=== PATIENT | female | born 1930 | race Caucasian/White ===

== ENCOUNTER 2017-04-07 08:53 | Inpatient (IN) | payer MEDICARE, OTHER ==
[~2017-04-07] VITALS: Ht 170.2 cm; Wt 111.5 kg
[~2017-04-07 08:53] MED LIST: ACET325 PO; BP MED; COUMADIN; CYAN100 PO; Coumadin7.5 MG PO; ENOX100I SC; ERGO400 PO; FISH OIL 1,0001 EACH PO; FISH1000 PO; GABA100 PO; HYDACE5 PO; INSN100I SC; INSULANPEN SC; INSULIN SC; LEVSOD100 PO; LISI20 PO; LOVA40; LOVA40 PO; MECL12.5; MECL12.5 PO; METF500; METF500 PO; METO25 PO; METO25ER; MULVITMINF PO; MYRBETRIQ50 MG PO; Norco 5-325 Ta1 EACH PO; OMEP10ER; OMEP20ER; OMEP20ER PO; OXYACE5T PO; OXYB5; PIOG30 PO; PRAVASTATIN SOD10 MG PO; Pravachol40 MG PO; RISE30; ROSI2; SERT25 PO; SERT50 PO; SPIR25; SPIR25 PO; TRAM50; VITAMIN D2000 UNIT PO; WARF1 PO; WARF4 PO; WARF7.5
[2017-04-07 09:51] LABS: BASOPHILS ABSOLUTE AUTO 0.02 K/mm3 (0.00-0.23); BASOPHILS PERCENT AUTO 0 % (0-2); EOSINOPHILS PERCENT AUTO 0 % (0-6); Hematocrit 33.5 % (33.0-51.0); Hemoglobin 10.8 g/dL (11.5-16.0); IMMATURE GRAN ABSOLUTE AUTO 0.05 K/mm3 (0.00-0.10); IMMATURE GRAN PERCENT AUTO 0 % (0-1); LYMPHOCYTES ABSOLUTE AUTO 1.41 K/mm3 (0.84-5.20); LYMPHOCYTES PERCENT AUTO 9 % (21-46); MONOCYTES ABSOLUTE AUTO 1.31 K/mm3 (0.16-1.47); MONOCYTES PERCENT AUTO 8 % (4-13); Mean Corpuscular HGB 29.8 pg (26.0-34.0); Mean Corpuscular HGB Conc 32.2 g/dL (31.5-36.5); Mean Corpuscular Volume 92 fL (80-100); NEUTROPHILS ABSOLUTE AUTO 13.71 K/mm3 (1.96-9.15); NEUTROPHILS PERCENT AUTO 83 % (41-73); Platelet Count 195 K/mm3 (150-400); RDW Coefficient Variation 14.1 % (11.7-14.2); RDW Standard Deviation 48.3 fL (35.1-46.3); Red Blood Cell Count 3.63 M/mm3 (3.80-5.20)
[2017-04-07 10:10] LABS: International Normalized Ratio 1.43
[2017-04-07 10:12] LABS: Albumin, Blood 2.7 g/dL (3.4-5.0); Albumin/Globulin Ratio 0.9 (0.8-1.8); Bilirubin, Total 0.6 mg/dL (0.1-1.0); Bun/Creatinine Ratio 25.8 (12.0-20.0); Calcium, Blood 7.9 mg/dL (8.5-10.1); Creatinine, Blood 1.2 mg/dL (0.40-1.00); Globulin, Blood 2.9 g/dL (2.2-4.0); Potassium, Blood 5.1 mmol/L (3.5-5.5); Total Protein, Blood 5.6 g/dL (6.4-8.2)
[2017-04-07] MEDS ORDERED: Prinivil10 MG PO (11:33)
[2017-04-07] MEDS ORDERED: INSULANPEN SC (11:37)
[2017-04-07 15:15] LABS: Source, Urine Clean Catch
[2017-04-07 15:23] LABS: Bilirubin, Urine Neg (Neg); Blood, Urine Neg (Neg); Glucose Qualitative, Urine Neg (Neg); Ketones, Urine Neg (Neg); Leukocyte Esterase, Urine 1+ (Neg); Nitrite, Urine Neg (Neg); Protein, Urine 2+ (Neg); Specific Gravity, Urine 1.015 (1.003-1.022); Urobilinogen, Urine NORM (Normal)
[2017-04-07 15:32] LABS: Appearance, Urine Clear (Clear); Color, Urine Yellow (P-Yellow)
[2017-04-07 15:33] LABS: Amorphous Light (0-Heavy); Bacteria Mod /hpf; Red Blood Cells, Urine 0-2 /hpf (0-2); Squamous Epithelial Cells Rare /hpf (Few); White Blood Cells, Urine 0-2 /hpf (0-5)
[2017-04-07 17:11] LABS: Influenza A Negative (NEGATIVE); Influenza B Negative (NEGATIVE)
[2017-04-07] MEDS ORDERED: WARF6 PO (19:48)
[2017-04-07] MEDS ORDERED: LISI20 PO (19:52)
[2017-04-08 05:20] LABS: BASOPHILS ABSOLUTE AUTO 0.01 K/mm3 (0.00-0.23); BASOPHILS PERCENT AUTO 0 % (0-2); EOSINOPHILS ABSOLUTE AUTO 0.01 K/mm3 (0.00-0.68); EOSINOPHILS PERCENT AUTO 0 % (0-6); Hematocrit 29.5 % (33.0-51.0); Hemoglobin 9.6 g/dL (11.5-16.0); IMMATURE GRAN ABSOLUTE AUTO 0.07 K/mm3 (0.00-0.10); IMMATURE GRAN PERCENT AUTO 0 % (0-1); LYMPHOCYTES PERCENT AUTO 8 % (21-46); MONOCYTES ABSOLUTE AUTO 0.91 K/mm3 (0.16-1.47); MONOCYTES PERCENT AUTO 5 % (4-13); Mean Corpuscular HGB 29.2 pg (26.0-34.0); Mean Corpuscular HGB Conc 32.5 g/dL (31.5-36.5); Mean Corpuscular Volume 90 fL (80-100); Mean Platelet Volume 8.9 fL (9.1-12.4); NEUTROPHILS ABSOLUTE AUTO 14.44 K/mm3 (1.96-9.15); NEUTROPHILS PERCENT AUTO 86 % (41-73); Platelet Count 168 K/mm3 (150-400); RDW Coefficient Variation 14.1 % (11.7-14.2); RDW Standard Deviation 46.7 fL (35.1-46.3); Red Blood Cell Count 3.29 M/mm3 (3.80-5.20); White Blood Cell Count 16.84 K/mm3 (4.00-11.30)
[2017-04-08 05:37] LABS: International Normalized Ratio 1.66; Prothrombin Time Results 17.5 Sec (9.7-11.5)
[2017-04-08 05:44] LABS: Bun/Creatinine Ratio 31.5 (12.0-20.0); Calcium, Blood 7.5 mg/dL (8.5-10.1); Creatinine, Blood 1.3 mg/dL (0.40-1.00); Potassium, Blood 4.2 mmol/L (3.5-5.5)
[2017-04-09 05:12] LABS: Hematocrit 27.5 % (33.0-51.0); Hemoglobin 8.8 g/dL (11.5-16.0); Mean Corpuscular HGB 29.3 pg (26.0-34.0); Mean Corpuscular Volume 92 fL (80-100); Mean Platelet Volume 9.2 fL (9.1-12.4); Platelet Count 180 K/mm3 (150-400); RDW Coefficient Variation 14.3 % (11.7-14.2); RDW Standard Deviation 48.1 fL (35.1-46.3); White Blood Cell Count 14.57 K/mm3 (4.00-11.30)
[2017-04-09 05:36] LABS: International Normalized Ratio 2.13; Prothrombin Time Results 22.7 Sec (9.7-11.5)
[2017-04-09 05:42] LABS: Albumin, Blood 2.1 g/dL (3.4-5.0); Anion Gap 8 mmol/L (6-16); Blood Urea Nitrogen 40 mg/dL (8-24); Bun/Creatinine Ratio 37.7 (12.0-20.0); CO2, Blood 20 mmol/L (21-32); Calcium, Blood 7.3 mg/dL (8.5-10.1); Chloride, Blood 105 mmol/L (98-108); Creatinine, Blood 1.06 mg/dL (0.40-1.00); Glomerular Filtration Rate 52 (60-); Glucose, Blood 62 mg/dL (70-99); Phosphorus, Blood 2.5 mg/dL (2.5-4.9); Potassium, Blood 4.1 mmol/L (3.5-5.5); Sodium, Blood 133 mmol/L (136-145)
[2017-04-09 06:48] LABS: Source, Urine Catheter
[2017-04-09 06:51] LABS: Bilirubin, Urine Neg (Neg); Blood, Urine Neg (Neg); Glucose Qualitative, Urine Neg (Neg); Ketones, Urine Neg (Neg); Leukocyte Esterase, Urine Neg (Neg); Nitrite, Urine Neg (Neg); Protein, Urine 1+ (Neg); Urobilinogen, Urine NORM (Normal)
[2017-04-09 06:57] LABS: Appearance, Urine Clear (Clear); Color, Urine Yellow (P-Yellow)
[2017-04-10 05:29] LABS: International Normalized Ratio 2.45; Prothrombin Time Results 26.2 Sec (9.7-11.5)
[2017-04-10 05:37] LABS: Anion Gap 7 mmol/L (6-16); Blood Urea Nitrogen 28 mg/dL (8-24); Bun/Creatinine Ratio 39.4 (12.0-20.0); CO2, Blood 21 mmol/L (21-32); Calcium, Blood 7.7 mg/dL (8.5-10.1); Chloride, Blood 104 mmol/L (98-108); Creatinine, Blood 0.71 mg/dL (0.40-1.00); Glomerular Filtration Rate >60 (60-); Glucose, Blood 84 mg/dL (70-99); Potassium, Blood 4.5 mmol/L (3.5-5.5); Sodium, Blood 132 mmol/L (136-145)
[2017-04-11 05:09] LABS: International Normalized Ratio 2.76; Prothrombin Time Results 29.6 Sec (9.7-11.5)
[2017-04-12 05:51] LABS: BASOPHILS ABSOLUTE AUTO 0.02 K/mm3 (0.00-0.23); BASOPHILS PERCENT AUTO 0 % (0-2); EOSINOPHILS ABSOLUTE AUTO 0.18 K/mm3 (0.00-0.68); EOSINOPHILS PERCENT AUTO 3 % (0-6); Hematocrit 30.3 % (33.0-51.0); Hemoglobin 9.9 g/dL (11.5-16.0); IMMATURE GRAN ABSOLUTE AUTO 0.26 K/mm3 (0.00-0.10); IMMATURE GRAN PERCENT AUTO 4 % (0-1); LYMPHOCYTES ABSOLUTE AUTO 1.33 K/mm3 (0.84-5.20); LYMPHOCYTES PERCENT AUTO 22 % (21-46); MONOCYTES ABSOLUTE AUTO 0.51 K/mm3 (0.16-1.47); MONOCYTES PERCENT AUTO 8 % (4-13); Mean Corpuscular HGB 29.4 pg (26.0-34.0); Mean Corpuscular HGB Conc 32.7 g/dL (31.5-36.5); Mean Corpuscular Volume 90 fL (80-100); NEUTROPHILS PERCENT AUTO 63 % (41-73); Platelet Count 232 K/mm3 (150-400); RDW Coefficient Variation 14.1 % (11.7-14.2); RDW Standard Deviation 46.7 fL (35.1-46.3); Red Blood Cell Count 3.37 M/mm3 (3.80-5.20)
[2017-04-12 06:03] LABS: International Normalized Ratio 2.88
[2017-04-12 06:21] LABS: Alanine Aminotransfer (ALT/SGP 22 U/L (12-78); Albumin, Blood 2.1 g/dL (3.4-5.0); Albumin/Globulin Ratio 0.7 (0.8-1.8); Alk Phos 52 U/L (50-136); Anion Gap 7 mmol/L (6-16); Aspartate Aminotrans (AST/SGOT 27 U/L (12-37); Bilirubin, Total 0.3 mg/dL (0.1-1.0); Blood Urea Nitrogen 14 mg/dL (8-24); Bun/Creatinine Ratio 25.3 (12.0-20.0); CO2, Blood 23 mmol/L (21-32); Calcium, Blood 8.3 mg/dL (8.5-10.1); Chloride, Blood 106 mmol/L (98-108); Creatinine, Blood 0.55 mg/dL (0.40-1.00); Globulin, Blood 3.1 g/dL (2.2-4.0); Glomerular Filtration Rate >60 (60-); Glucose, Blood 102 mg/dL (70-99); Potassium, Blood 4.4 mmol/L (3.5-5.5); Sodium, Blood 136 mmol/L (136-145); Total Protein, Blood 5.2 g/dL (6.4-8.2)
[2017-04-13 06:01] LABS: International Normalized Ratio 2.93; Prothrombin Time Results 31.5 Sec (9.7-11.5)
[2017-04-13] MEDS ORDERED: ACET325 PO (12:02)
[2017-04-13] MEDS ORDERED: INSU100I6 (12:03)
[2017-04-13] MEDS ORDERED: OMEPRAZOLE MAGN20 MG PO (12:09)
== END 2017-04-13 11:45 | disposition home or self-care (01) | DRG 683 ==
LOC: ER 08:53 → MEDS 18:15
PROVIDERS: Internal Medicine; Physician Assistant
DX: N17.9 Acute kidney failure, unspecified (principal); R65.10 Systemic inflammatory response syndrome (SIRS) of non-infectious origin without acute organ dysfunction; I48.0 Paroxysmal atrial fibrillation; D64.9 Anemia, unspecified; E11.9 Type 2 diabetes mellitus without complications; D72.829 Elevated white blood cell count, unspecified; E03.9 Hypothyroidism, unspecified; E78.5 Hyperlipidemia, unspecified; J20.9 Acute bronchitis, unspecified; I12.9 Hypertensive chronic kidney disease with stage 1 through stage 4 chronic kidney disease, or unspecified chronic kidney disease; N18.9 Chronic kidney disease, unspecified; R32 Unspecified urinary incontinence; R62.7 Adult failure to thrive; Z79.4 Long term (current) use of insulin; Z95.2 Presence of prosthetic heart valve; Z96.641 Presence of right artificial hip joint; Z79.01 Long term (current) use of anticoagulants
CPT/HCPCS: 36415; 51702; 71046; 74176; 80048; 80053; 80069; 81001; 82947; 85025; 85027; 85610; 87086; 87804; 93005; 93010; 94760; 97110; 97162; 97166; 97530; 97535; 99285; G8978; G8979; G8987; G8988; J0456; J1650; J1815; J2405; J3480; J7050

== ENCOUNTER → 2017-05-15 | Outpatient (CLI) | payer MEDICARE, OTHER ==
[~2017-05-15] MED LIST changes: +ELIQUIS5 MG PO; +Ferrous Sulfat325 MG; +INSU100I6; +LOSA50 PO; +OMEPRAZOLE MAGN20 MG PO; +Prinivil10 MG PO; +Tessalon Perle100 MG; +WARF6 PO
[2017-05-15 17:13] LABS: Appearance, Urine Clear (Clear); Bilirubin, Urine Neg (Neg); Blood, Urine Neg (Neg); Color, Urine Yellow (P-Yellow); Glucose Qualitative, Urine Neg (Neg); Ketones, Urine Neg (Neg); Leukocyte Esterase, Urine Neg (Neg); Nitrite, Urine Neg (Neg); Protein, Urine 2+ (Neg); Urobilinogen, Urine NORM (Normal)
[2017-05-15 17:29] LABS: Specific Gravity, Urine 1.015 (1.003-1.022)
[2017-05-15 17:32] LABS: Bacteria Mod /hpf; Squamous Epithelial Cells Mod /hpf (Few)
== END | disposition home or self-care (01) ==
LOC: LAB RH 16:40
PROVIDERS: Nurse Practitioner Family
DX: N39.0 Urinary tract infection, site not specified (principal)
CPT/HCPCS: 81001; 87086

== ENCOUNTER → 2017-06-18 | Outpatient (CLI) | payer MEDICARE, OTHER ==
[2017-06-18 14:25] LABS: Appearance, Urine Clear (Clear); Bilirubin, Urine Neg (Neg); Blood, Urine 1+ (Neg); Color, Urine Yellow (P-Yellow); Glucose Qualitative, Urine Neg (Neg); Ketones, Urine Neg (Neg); Leukocyte Esterase, Urine 2+ (Neg); Nitrite, Urine Neg (Neg); Protein, Urine 3+ (Neg); Urobilinogen, Urine NORM (Normal)
[2017-06-18 14:38] LABS: Squamous Epithelial Cells Few /hpf (Few); White Blood Cells, Urine 25-50 /hpf (0-5)
[2017-06-18 14:39] LABS: Bacteria Few /hpf
== END ==
LOC: EDSTATUS 13:04 → LAB RH 14:01
PROVIDERS: Nurse Practitioner Family
DX: N39.0 Urinary tract infection, site not specified (principal)
CPT/HCPCS: 81001; 87086

== ENCOUNTER → 2017-07-05 | Outpatient (CLI) | payer MEDICARE, OTHER ==
[2017-07-05 16:35] LABS: Source, Urine Catheter
[2017-07-05 16:49] LABS: Appearance, Urine Clear (Clear); Bilirubin, Urine Neg (Neg); Blood, Urine 1+ (Neg); Color, Urine Yellow (P-Yellow); Glucose Qualitative, Urine Neg (Neg); Ketones, Urine Neg (Neg); Leukocyte Esterase, Urine Neg (Neg); Nitrite, Urine Neg (Neg); Protein, Urine 3+ (Neg); Urobilinogen, Urine 1+ (Normal)
[2017-07-05 17:04] LABS: Amorphous Not Seen (0-Heavy)
[2017-07-05 17:05] LABS: Bacteria Few /hpf; Squamous Epithelial Cells Few /hpf (Few)
== END | disposition home or self-care (01) ==
LOC: LAB RH 13:30 → EDSTATUS 14:17
PROVIDERS: Nurse Practitioner Family
DX: N39.0 Urinary tract infection, site not specified (principal)
CPT/HCPCS: 81001

== ENCOUNTER 2017-07-06 17:33 | Emergency (ER) | payer MEDICARE, OTHER ==
[~2017-07-06] VITALS: Ht 170.2 cm; Wt 101.6 kg
[~2017-07-06 17:33] MED LIST changes: -ELIQUIS5 MG PO; -Ferrous Sulfat325 MG; -LOSA50 PO; -Tessalon Perle100 MG
[2017-07-06] MEDS ORDERED: ELIQUIS5 MG PO (17:45)
[2017-07-06] MEDS ORDERED: LOSA50 PO (17:45)
[2017-07-06] MEDS ORDERED: Ferrous Sulfat325 MG (17:46)
[2017-07-06] MEDS ORDERED: Tessalon Perle100 MG (17:47)
[2017-07-06 18:10] LABS: BASOPHILS ABSOLUTE AUTO 0.03 K/mm3 (0.00-0.23); BASOPHILS PERCENT AUTO 0 % (0-2); EOSINOPHILS ABSOLUTE AUTO 0.15 K/mm3 (0.00-0.68); EOSINOPHILS PERCENT AUTO 2 % (0-6); Hematocrit 33.8 % (33.0-51.0); IMMATURE GRAN ABSOLUTE AUTO 0.09 K/mm3 (0.00-0.10); IMMATURE GRAN PERCENT AUTO 1 % (0-1); LYMPHOCYTES ABSOLUTE AUTO 2.06 K/mm3 (0.84-5.20); LYMPHOCYTES PERCENT AUTO 25 % (21-46); MONOCYTES ABSOLUTE AUTO 0.66 K/mm3 (0.16-1.47); MONOCYTES PERCENT AUTO 8 % (4-13); Mean Corpuscular HGB 28.5 pg (26.0-34.0); Mean Corpuscular HGB Conc 32.5 g/dL (31.5-36.5); Mean Corpuscular Volume 88 fL (80-100); Mean Platelet Volume 9.1 fL (9.1-12.4); NEUTROPHILS ABSOLUTE AUTO 5.42 K/mm3 (1.96-9.15); NEUTROPHILS PERCENT AUTO 64 % (41-73); Platelet Count 208 K/mm3 (150-400); RDW Coefficient Variation 14.5 % (11.7-14.2); RDW Standard Deviation 46.5 fL (35.1-46.3); Red Blood Cell Count 3.86 M/mm3 (3.80-5.20); White Blood Cell Count 8.41 K/mm3 (4.00-11.30)
[2017-07-06 18:20] LABS: Alanine Aminotransfer (ALT/SGP 17 U/L (12-78); Albumin, Blood 2.7 g/dL (3.4-5.0); Albumin/Globulin Ratio 0.8 (0.8-1.8); Alk Phos 84 U/L (50-136); Anion Gap 6 mmol/L (6-16); Aspartate Aminotrans (AST/SGOT 23 U/L (12-37); Bilirubin, Total 0.6 mg/dL (0.1-1.0); Blood Urea Nitrogen 12 mg/dL (8-24); Bun/Creatinine Ratio 21.8 (12.0-20.0); CO2, Blood 26 mmol/L (21-32); Calcium, Blood 8.5 mg/dL (8.5-10.1); Chloride, Blood 97 mmol/L (98-108); Creatinine, Blood 0.55 mg/dL (0.40-1.00); Globulin, Blood 3.2 g/dL (2.2-4.0); Glomerular Filtration Rate >60 (60-); Glucose, Blood 110 mg/dL (70-99); Sodium, Blood 129 mmol/L (136-145); Total Protein, Blood 5.9 g/dL (6.4-8.2)
[2017-07-06 19:09] LABS: Troponin I <0.015 ng/mL (0.000-0.040)
== END 2017-07-06 21:54 | disposition home or self-care (01) ==
LOC: ER 17:33
PROVIDERS: Physician Assistant
DX: I11.0 Hypertensive heart disease with heart failure (principal); I50.9 Heart failure, unspecified; E11.9 Type 2 diabetes mellitus without complications; Z88.0 Allergy status to penicillin; Z88.5 Allergy status to narcotic agent; Z88.8 Allergy status to other drugs, medicaments and biological substances; Z79.4 Long term (current) use of insulin; Z79.899 Other long term (current) drug therapy
CPT/HCPCS: 71046; 80053; 83880; 84484; 85025; 93005; 93010; 96374; 96375; 99284; J0360; J1940

== ENCOUNTER → 2017-07-31 | Outpatient (CLI) | payer MEDICARE, OTHER ==
[~2017-07-31] MED LIST changes: +ELIQUIS5 MG PO; +Ferrous Sulfat325 MG; +LOSA50 PO; +Tessalon Perle100 MG
[2017-07-31 14:09] LABS: Hemoglobin 12.7 g/dL (11.5-16.0); Mean Corpuscular HGB 28.7 pg (26.0-34.0); Mean Corpuscular HGB Conc 31.8 g/dL (31.5-36.5); Mean Corpuscular Volume 91 fL (80-100); Mean Platelet Volume 9.4 fL (9.1-12.4); Platelet Count 184 K/mm3 (150-400); RDW Coefficient Variation 14.7 % (11.7-14.2); RDW Standard Deviation 49.1 fL (35.1-46.3); Red Blood Cell Count 4.42 M/mm3 (3.80-5.20); White Blood Cell Count 4.36 K/mm3 (4.00-11.30)
[2017-07-31 14:56] LABS: Alanine Aminotransfer (ALT/SGP 14 U/L (12-78); Albumin/Globulin Ratio 0.9 (0.8-1.8); Alk Phos 94 U/L (50-136); Anion Gap 5 mmol/L (6-16); Aspartate Aminotrans (AST/SGOT 22 U/L (12-37); Bilirubin, Total 0.6 mg/dL (0.1-1.0); Blood Urea Nitrogen 11 mg/dL (8-24); Bun/Creatinine Ratio 17.3 (12.0-20.0); CO2, Blood 30 mmol/L (21-32); Calcium, Blood 8.5 mg/dL (8.5-10.1); Chloride, Blood 101 mmol/L (98-108); Creatinine, Blood 0.64 mg/dL (0.40-1.00); Globulin, Blood 3.3 g/dL (2.2-4.0); Glomerular Filtration Rate >60 (60-); Glucose, Blood 123 mg/dL (70-99); Potassium, Blood 4.1 mmol/L (3.5-5.5); Sodium, Blood 136 mmol/L (136-145); Total Protein, Blood 6.3 g/dL (6.4-8.2)
== END | disposition home or self-care (01) ==
LOC: LAB RH 13:05 → EDSTATUS 13:54
PROVIDERS: Nurse Practitioner Family
DX: N17.9 Acute kidney failure, unspecified (principal); J40 Bronchitis, not specified as acute or chronic
CPT/HCPCS: 80053; 85027

== ENCOUNTER → 2017-12-10 | Outpatient (CLI) | payer MEDICARE, OTHER ==
[2017-12-10 23:27] LABS: Bilirubin, Urine Neg (Neg); Blood, Urine 2+ (Neg); Glucose Qualitative, Urine Neg (Neg); Ketones, Urine Neg (Neg); Leukocyte Esterase, Urine 3+ (Neg); Nitrite, Urine Neg (Neg); Protein, Urine 3+ (Neg); Specific Gravity, Urine 1.015 (1.003-1.022); Urobilinogen, Urine NORM (Normal)
[2017-12-10 23:32] LABS: Appearance, Urine Cloudy (Clear); Color, Urine Yellow (P-Yellow)
[2017-12-10 23:33] LABS: Bacteria Many /hpf; Red Blood Cells, Urine 0-2 /hpf (0-2); Squamous Epithelial Cells Few /hpf (Few); White Blood Cells, Urine TNTC /hpf (0-5)
== END | disposition home or self-care (01) ==
LOC: EDSTATUS 11:27 → LAB RH 14:50
PROVIDERS: Nurse Practitioner Family
DX: N39.0 Urinary tract infection, site not specified (principal)
CPT/HCPCS: 81001; 87086

== ENCOUNTER → 2017-12-14 | Outpatient (CLI) | payer MEDICARE, OTHER ==
[2017-12-14 14:21] LABS: Adenovirus F 40/41 Not Detected (NOT DETECT); Astrovirus Not Detected (NOT DETECT); Campylobacter Sp Not Detected (NOT DETECT); Cryptosporidium Not Detected (NOT DETECT); Cyclospora Cayetanensis Not Detected (NOT DETECT); E. Coli O157 Not Detected (NOT DETECT); Entamoeba Histolytica Not Detected (NOT DETECT); Enteroaggregative E. coli-EAEC Not Detected (NOT DETECT); Enteropathogenic E. coli-EPEC Not Detected (NOT DETECT); Enterotoxigenic E. coli-ETEC Not Detected (NOT DETECT); Giardia Lamblia Not Detected (NOT DETECT); Norovirus GI/GII Not Detected (NOT DETECT); Plesiomonas Shigelloides Not Detected (NOT DETECT); Rotavirus A Not Detected (NOT DETECT); Salmonella Sp Not Detected (NOT DETECT); Sapovirus Not Detected (NOT DETECT); Shiga Toxin-prod E. coli-STEC Not Detected (NOT DETECT); Shigella/Enteroin E. coli-EIEC Not Detected (NOT DETECT); Vibrio Cholerae Not Detected (NOT DETECT); Vibrio Sp Not Detected (NOT DETECT); Yersinia Enterocolitica Not Detected (NOT DETECT)
== END | disposition home or self-care (01) ==
LOC: LAB 13:30 → LAB SHORT 13:30
PROVIDERS: Nurse Practitioner Family
DX: R19.7 Diarrhea, unspecified (principal)
CPT/HCPCS: 87507

== ENCOUNTER → 2018-11-07 | Outpatient (CLI) | payer MEDICARE, OTHER ==
[~2018-11-07] MED LIST changes: +AMLO10 PO; +ASCO500 PO; +Aspir 8181 MG PO; +CARV6.25 PO; +CEPH500 PO; +EUTHYROX150 MCG PO; +FURO20 PO; -Ferrous Sulfat325 MG; +Ferrous Sulfat325 MG PO; +Fiber Therapy0.52 GM PO; +Fleet Enema132 ML PR; +Florastor250 MG PO; +GLYCERIN1 EACH PR; +Hair, Skin & N1 EACH PO; +Humulin R500 UNIT/1 SC; +MOTION RELIEF25 MG PO; +ONDA4ODT SL; +POTA10T PO; +Pedi-Dri 100,0060 GM TOP; +TROSPIUM CHLORI20 MG PO; -Tessalon Perle100 MG; +Tessalon200 MG PO; +[UNRECOGNIZED DRUG - OTHER] PO
[2018-11-07 16:41] LABS: Percent Saturation 25.7 % (15.0-50.0)
== END | disposition home or self-care (01) ==
LOC: LAB SHORT 12:30 → LAB 12:30
PROVIDERS: Internal Medicine Hematology & Oncology
DX: D51.8 Other vitamin B12 deficiency anemias (principal)
CPT/HCPCS: 82607; 82746; 83540; 83550

== ENCOUNTER 2018-12-04 15:42 | Emergency (ER) | payer MEDICARE, OTHER ==
[~2018-12-04] VITALS: Ht 167.6 cm; Wt 104.3 kg
[~2018-12-04 15:42] MED LIST changes: -AMLO10 PO; -ASCO500 PO; -Aspir 8181 MG PO; -CARV6.25 PO; -CEPH500 PO; -EUTHYROX150 MCG PO; -FURO20 PO; -Ferrous Sulfat325 MG PO; -Fiber Therapy0.52 GM PO; -Fleet Enema132 ML PR; -Florastor250 MG PO; -GLYCERIN1 EACH PR; -Hair, Skin & N1 EACH PO; -Humulin R500 UNIT/1 SC; -LOSA50 PO; -MOTION RELIEF25 MG PO; -OMEPRAZOLE MAGN20 MG PO; -ONDA4ODT SL; -POTA10T PO; -Pedi-Dri 100,0060 GM TOP; -Pravachol40 MG PO; -TROSPIUM CHLORI20 MG PO; -Tessalon200 MG PO; -[UNRECOGNIZED DRUG - OTHER] PO
[2018-12-04] MEDS ORDERED: METO25 PO (15:52)
[2018-12-04] MEDS ORDERED: CEPH500 PO (16:46)
== END 2018-12-04 18:02 | disposition home or self-care (01) ==
LOC: ER 15:42
DX: S51.802A Unspecified open wound of left forearm, initial encounter (principal); L03.114 Cellulitis of left upper limb; I10 Essential (primary) hypertension; X58.XXXA Exposure to other specified factors, initial encounter; Z88.0 Allergy status to penicillin; Z88.5 Allergy status to narcotic agent; Z88.8 Allergy status to other drugs, medicaments and biological substances; Z88.1 Allergy status to other antibiotic agents; Z79.899 Other long term (current) drug therapy; Z79.82 Long term (current) use of aspirin; Z79.4 Long term (current) use of insulin; E11.9 Type 2 diabetes mellitus without complications
CPT/HCPCS: 99283

== ENCOUNTER 2018-12-30 11:06 | Inpatient (IN) | payer MEDICARE, OTHER ==
[~2018-12-30] VITALS: Ht 170.2 cm; Wt 112.4 kg
[~2018-12-30 11:06] MED LIST changes: +CEPH500 PO
[2018-12-30 11:35] LABS: Calcium, Ionized (POC) 1.02 mmol/L (1.10-1.46); Chloride (POC) 95 mmol/L (98-108); Creatinine (POC) 1.8 mg/dL (0.6-1.0); Glucose (ISTAT POC) 145 mg/dL (70-99); Hemoglobin (POC) 13.6 g/dL (12.0-16.0); Potassium (POC) 4.4 mmol/L (3.5-5.5); Sodium (POC) 126 mmol/L (135-148); Total CO2 (POC) 22 mmol/L (21-32)
[2018-12-30 11:40] LABS: BASOPHILS ABSOLUTE AUTO 0.02 K/mm3 (0.00-0.23); BASOPHILS PERCENT AUTO 0 % (0-2); EOSINOPHILS ABSOLUTE AUTO 0.02 K/mm3 (0.00-0.68); EOSINOPHILS PERCENT AUTO 0 % (0-6); Hematocrit 40.3 % (33.0-51.0); Hemoglobin 12.8 g/dL (11.5-16.0); IMMATURE GRAN ABSOLUTE AUTO 0.09 K/mm3 (0.00-0.10); IMMATURE GRAN PERCENT AUTO 1 % (0-1); LYMPHOCYTES ABSOLUTE AUTO 1.61 K/mm3 (0.84-5.20); LYMPHOCYTES PERCENT AUTO 11 % (21-46); MONOCYTES ABSOLUTE AUTO 1.31 K/mm3 (0.16-1.47); MONOCYTES PERCENT AUTO 9 % (4-13); Mean Corpuscular HGB 29.1 pg (26.0-34.0); Mean Corpuscular HGB Conc 31.8 g/dL (31.5-36.5); Mean Corpuscular Volume 92 fL (80-100); Mean Platelet Volume 9.7 fL (9.1-12.4); NEUTROPHILS ABSOLUTE AUTO 12.12 K/mm3 (1.96-9.15); NEUTROPHILS PERCENT AUTO 80 % (41-73); Platelet Count 203 K/mm3 (150-400); RDW Coefficient Variation 14.8 % (11.7-14.2); RDW Standard Deviation 50.4 fL (35.1-46.3); White Blood Cell Count 15.17 K/mm3 (4.00-11.30)
[2018-12-30 12:02] LABS: Albumin, Blood 2.4 g/dL (3.4-5.0); Albumin/Globulin Ratio 0.8 (0.8-1.8); Bilirubin, Total 0.7 mg/dL (0.1-1.0); Bun/Creatinine Ratio 21.3 (12.0-20.0); Calcium, Blood 7.8 mg/dL (8.5-10.1); Creatinine, Blood 1.5 mg/dL (0.40-1.00); Globulin, Blood 2.9 g/dL (2.2-4.0); Potassium, Blood 4.4 mmol/L (3.5-5.5); Prothrombin Time Results 39.7 Sec (9.7-11.5); Total Protein, Blood 5.3 g/dL (6.4-8.2)
[2018-12-30 12:08] LABS: International Normalized Ratio 4.27
[2018-12-30] MEDS ORDERED: GABA100 PO (12:58)
[2018-12-30] MEDS ORDERED: Pravachol40 MG PO (12:59)
[2018-12-30] MEDS ORDERED: SERT50 PO (12:59)
[2018-12-30] MEDS ORDERED: Tessalon200 MG PO (13:00)
[2018-12-30] MEDS ORDERED: EUTHYROX150 MCG PO (13:00)
[2018-12-30] MEDS ORDERED: AMLO10 PO (13:01)
[2018-12-30] MEDS ORDERED: Aspir 8181 MG PO (13:01)
[2018-12-30] MEDS ORDERED: FURO20 PO (13:02)
[2018-12-30] MEDS ORDERED: POTA10T PO (13:02)
[2018-12-30] MEDS ORDERED: Hair, Skin & N1 EACH PO (13:04)
[2018-12-30] MEDS ORDERED: ASCO500 PO (13:04)
[2018-12-30] MEDS ORDERED: LOSA50 PO (13:05)
[2018-12-30] MEDS ORDERED: CARV6.25 PO (13:05)
[2018-12-30] MEDS ORDERED: Ferrous Sulfat325 MG PO (13:06)
[2018-12-30] MEDS ORDERED: TROSPIUM CHLORI20 MG PO (13:06)
[2018-12-30] MEDS ORDERED: ACET325 PO (13:07)
[2018-12-30] MEDS ORDERED: Pedi-Dri 100,0060 GM TOP (13:10)
[2018-12-30] MEDS ORDERED: MOTION RELIEF25 MG PO (13:11)
[2018-12-30] MEDS ORDERED: INSULANPEN SC (13:12)
[2018-12-30] MEDS ORDERED: OMEPRAZOLE MAGN20 MG PO (13:12)
[2018-12-30] MEDS ORDERED: [UNRECOGNIZED DRUG - OTHER] PO (13:14)
[2018-12-30] MEDS ORDERED: ONDA4ODT SL (13:14)
[2018-12-30] MEDS ORDERED: WARF6 PO (13:15)
[2018-12-30] MEDS ORDERED: WARF1 PO (13:16)
[2018-12-30] MEDS ORDERED: Fleet Enema132 ML PR (13:17)
[2018-12-30] MEDS ORDERED: GLYCERIN1 EACH PR (13:19)
[2018-12-30 17:18] LABS: Prothrombin Time Results 48.5 Sec (9.7-11.5)
[2018-12-30 17:19] LABS: International Normalized Ratio 5.33
--- NOTE | 2018-12-30 19:23 | NUR ---
SHIFT SUMMARY: PATIENT ADMIT FROM ED THIS SHIFT. PATIENT A&O; OCC CONFUSION; CALM AND COOPERATIVE WITH CARE. ELEVATED WBC COUNT; IV ABX. AWAITING TELE; PT HX A-FIB, CHF, HTN; EKG IN ER @ 1114 - SR@80 c 1 DEG BLOCK.NO C/O PAIN/NAUSEA. PT ON BEDREST c BSC; PT WHEELCHAIR BOUND @ BASELINE. REPORT GIVEN TO ONCOMING RN.
[2018-12-30 21:56] LABS: Adenovirus F 40/41 Not Detected (NOT DETECT); Astrovirus Not Detected (NOT DETECT); Campylobacter Sp Not Detected (NOT DETECT); Cryptosporidium Not Detected (NOT DETECT); Cyclospora Cayetanensis Not Detected (NOT DETECT); E. Coli O157 Not Detected (NOT DETECT); Entamoeba Histolytica Not Detected (NOT DETECT); Enteroaggregative E. coli-EAEC Not Detected (NOT DETECT); Enteropathogenic E. coli-EPEC Detected (NOT DETECT); Enterotoxigenic E. coli-ETEC Not Detected (NOT DETECT); Giardia Lamblia Not Detected (NOT DETECT); Norovirus GI/GII Not Detected (NOT DETECT); Plesiomonas Shigelloides Not Detected (NOT DETECT); Rotavirus A Not Detected (NOT DETECT); Salmonella Sp Not Detected (NOT DETECT); Sapovirus Not Detected (NOT DETECT); Shiga Toxin-prod E. coli-STEC Not Detected (NOT DETECT); Shigella/Enteroin E. coli-EIEC Not Detected (NOT DETECT); Vibrio Cholerae Not Detected (NOT DETECT); Vibrio Sp Not Detected (NOT DETECT); Yersinia Enterocolitica Not Detected (NOT DETECT)
[2018-12-31 05:06] LABS: BASOPHILS ABSOLUTE AUTO 0.03 K/mm3 (0.00-0.23); BASOPHILS PERCENT AUTO 0 % (0-2); EOSINOPHILS ABSOLUTE AUTO 0.01 K/mm3 (0.00-0.68); EOSINOPHILS PERCENT AUTO 0 % (0-6); Hematocrit 34.5 % (33.0-51.0); Hemoglobin 11.2 g/dL (11.5-16.0); IMMATURE GRAN ABSOLUTE AUTO 0.16 K/mm3 (0.00-0.10); IMMATURE GRAN PERCENT AUTO 1 % (0-1); LYMPHOCYTES ABSOLUTE AUTO 1.58 K/mm3 (0.84-5.20); LYMPHOCYTES PERCENT AUTO 10 % (21-46); MONOCYTES ABSOLUTE AUTO 1.31 K/mm3 (0.16-1.47); MONOCYTES PERCENT AUTO 9 % (4-13); Mean Corpuscular HGB 29.2 pg (26.0-34.0); Mean Corpuscular HGB Conc 32.5 g/dL (31.5-36.5); Mean Corpuscular Volume 90 fL (80-100); Mean Platelet Volume 9.2 fL (9.1-12.4); NEUTROPHILS ABSOLUTE AUTO 12.28 K/mm3 (1.96-9.15); NEUTROPHILS PERCENT AUTO 80 % (41-73); Platelet Count 176 K/mm3 (150-400); RDW Coefficient Variation 14.8 % (11.7-14.2); Red Blood Cell Count 3.84 M/mm3 (3.80-5.20); White Blood Cell Count 15.37 K/mm3 (4.00-11.30)
--- NOTE | 2018-12-31 05:22 | NUR ---
SHIFT SUMMARY PT ADMITTED FOR COLITIES. DNR. ADA-2 GRAM LOW SODIUM, CARDIAC, FULL LIQUID DIET. CBG AT AC AND HS. TELE-NSR WITH A FIRST DEGREE BLOCK AT A RATE OF 80. THIGH HIGH ANTI-EMBOLIC STOCKSINGS. NS, KCL 20 MEQ AT 100 MLS/HR X 2 BAGS, SECOND BAG CURRENTLY INFUSING. PROTONIX AT 10 MLS/HR. PT IS A LONG-TERM RESIDENT OF [facility] AND PLAN IS TO RETURN WHEN ACUTE MEDICAL NEEDS ARE MET. [facility] PT. W/C BOUND AT BASELINE PER REPORT. TAKES MEDICATIONS WHOLE. 20G IV TO L AC, 20 GI IV TO R WRIST. PT ADMITTED FOR A SYNCOPAL EPISODE. THE PT WAS ON THE COMMODE TO HAVE A BM AND WHEN STANDING THE PT LOST CONSCIOUSNESS PER REPORT. PT REPORTS 304 EPISODES OF DARK, LOOSE STOOL DAILY FOR SEVERAL WEEKS. A CT OF THE ABDOMENT SHOWED EVIDENCE OF MODERATE TO SEVERE DISTAL PROCTOCOLITIS. THE PT WAS PLEASENT AND COOPERATIVE WITH CARE. WHEN ATTEMPTING TO GET THE PT OUT OF BED TO PLACE ON THE BSC THE PT STATED SHE BECAME DIZZY, AND THE PT WAS TOO WEAK TO EVEN HOLD SELF UP IN SITTING POSITION IN BED. IT DID NOT APPEAR TO BE SAFE TO GET THE PT UP. PT PLACED ON A BEDPAN AND HAD BM, STOOL SAMPLE SENT TO LAB. THE PT DID APPEAR TO GET CONFUSED THIS NIGHT, WAS NOT ABLE TO REDIRECT IMMEDIATELY. PT DID APPEAR TO RETURN TO BASELINE AFTER SEVERAL MINUTES. THE PT APPEARS TO BE SLEEPING COMFORTABLY AT THIS TIME WITH NO APPARENT SIGNS OF ACUTE DISTRESS. FREQUENT VISUAL CHECKS IT IS UNCLEAR IF PT ALWARYS USES CALL LIGHT APPROPRIATELY. WILL CONTINUE TO MONITOR.
[2018-12-31 05:25] LABS: Prothrombin Time Results 50.7 Sec (9.7-11.5)
[2018-12-31 05:30] LABS: International Normalized Ratio 5.59
[2018-12-31 05:36] LABS: Albumin, Blood 2.2 g/dL (3.4-5.0); Albumin/Globulin Ratio 0.8 (0.8-1.8); Bilirubin, Total 0.9 mg/dL (0.1-1.0); Bun/Creatinine Ratio 25.5 (12.0-20.0); Calcium, Blood 7.3 mg/dL (8.5-10.1); Creatinine, Blood 1.49 mg/dL (0.40-1.00); Globulin, Blood 2.6 g/dL (2.2-4.0); Potassium, Blood 4.3 mmol/L (3.5-5.5); Total Protein, Blood 4.8 g/dL (6.4-8.2)
--- NOTE | 2018-12-31 06:06 | NUR ---
ISOLATION REMOVAL STOOL SAMPLE COLLECTED AND SENT TO LAB. WAS POSITIVE FOR STOOL EPEC (PCR), IT WAS UNCLEAR IF THIS REQUIRED CONTACT ISOLATION SO PT KEPT IN ISOLATION UNTIL COULD CONFIRM WITH INFECTION CONTROL THIS AM. AT 0602 INFECTION CONTROL CALLED THIS NURSE AND STATED THAT THIS IS STANDARD PRECAUTIONS ONLY. NOTIFIED TERMITE EXTERMINATOR HELPER AND GAS AND OIL SERVICER.
--- NOTE | 2018-12-31 12:26 | NUR ---
Patient is lying in bed and alert. Patient is tearful about the loss of her on 11/03/2018 And at other times recently her son and her niece) and about her current medical conditions that have led to her being a fall risk at home. Patient realizes that alternate living arrangements are needed but is saddened with the idea of not returning to her independent living. I listen empathically, reinforce helpful attitudes and practices, explore church beliefs, provide grief support, quatation of inspirational scriptures and prayer. Patient responds well and displays evidence of renewed hope. I will continue to remain available to patient and family.
--- NOTE | 2018-12-31 19:29 | NUR ---
SUMMARY- PT ALERT AND ORIENTED. DEPENDANT IN CARE, FEEDS SELF WITH SET UP. HAD DIARRHEA ALL DAY, NON STOP CONT TO GO DURING CHANGES. GLUT RED, NO OPEN AREAS, APPLIED SKIN BARRIER WITH CHANGES. INCONT WITH ATTENDS. PT DENEID NAUSEA BUT STATES DECREASED APPETITE, TOLERATES SMALL AMOUNTS PUREED FOOD (HAS NO TEETH) AND TAKING IN FLUIDS WITHOUT TROUBLE. IV NOW SL COMPLETED 2ND LITER. CONT ORAL VANCO. FAMILY AT BEDSIDE TO VISIT ALL DAY ON/OFF. VSS, AFIBRILE. PT HAD ONE EPISODE OF EMESIS AFTER ATTENDS CHANGE DIRECTLY AFTER DINNER, LIKELY DUE TO PROXOMITY TO DINNER. DENIED NAUSEA AFTER EMESIS AND BED CHANGE. WILL REPORT TO NOC.
--- NOTE | 2019-01-01 03:48 | NUR ---
SHIFT SUMMARY NO APPARENT ACUTE CHANGES SO FAR THIS SHIFT. PT WITH C/O NAUSEA AT BEGINNING OF SHIFT AND REPORTS OF EMESIS FROM PREVIOUS NURSE. MEDICATED PER EMAR WITH NO ADDITIONAL C/O OF NAUSEA SO FAR THIS SHIFT. BUFFING MACHINE OPERATOR SEMIAUTOMATIC REPORTED ELEVATED TEMP DURING INITIAL VITALS, PT WITH MULTIPLE BLANKETS ON, REMOVED BLANKETS AND TEMP REDUCED TO WNL. PT HAS APPEARED TO BE SLEEPING COMFORTABLY SO FAR THIS SHIFT WITH NO APPARENT SIGNS OF ACUTE DISTRESS. ABLE TO MAKE NEEDS KNOWN AND CALL LIGHT IN REACH. PT APPEARS TO BE USING CALL LIGHT APPROPRIATELY SO FAR THIS SHIFT.
[2019-01-01 05:16] LABS: International Normalized Ratio 3.67; Prothrombin Time Results 34.6 Sec (9.7-11.5)
[2019-01-01 08:53] LABS: BASOPHILS ABSOLUTE AUTO 0.04 K/mm3 (0.00-0.23); BASOPHILS PERCENT AUTO 0 % (0-2); EOSINOPHILS ABSOLUTE AUTO 0.07 K/mm3 (0.00-0.68); EOSINOPHILS PERCENT AUTO 0 % (0-6); Hematocrit 34.3 % (33.0-51.0); Hemoglobin 10.8 g/dL (11.5-16.0); IMMATURE GRAN ABSOLUTE AUTO 0.23 K/mm3 (0.00-0.10); IMMATURE GRAN PERCENT AUTO 1 % (0-1); LYMPHOCYTES ABSOLUTE AUTO 1.86 K/mm3 (0.84-5.20); LYMPHOCYTES PERCENT AUTO 11 % (21-46); MONOCYTES ABSOLUTE AUTO 1.19 K/mm3 (0.16-1.47); MONOCYTES PERCENT AUTO 7 % (4-13); Mean Corpuscular HGB 29.3 pg (26.0-34.0); Mean Corpuscular HGB Conc 31.5 g/dL (31.5-36.5); Mean Corpuscular Volume 93 fL (80-100); Mean Platelet Volume 9.8 fL (9.1-12.4); NEUTROPHILS ABSOLUTE AUTO 12.87 K/mm3 (1.96-9.15); NEUTROPHILS PERCENT AUTO 79 % (41-73); Platelet Count 183 K/mm3 (150-400); RDW Coefficient Variation 14.7 % (11.7-14.2); RDW Standard Deviation 51.1 fL (35.1-46.3); Red Blood Cell Count 3.68 M/mm3 (3.80-5.20); White Blood Cell Count 16.26 K/mm3 (4.00-11.30)
[2019-01-01 09:19] LABS: Bun/Creatinine Ratio 34.1 (12.0-20.0); Calcium, Blood 7.5 mg/dL (8.5-10.1); Creatinine, Blood 1.32 mg/dL (0.40-1.00); Potassium, Blood 3.9 mmol/L (3.5-5.5)
--- NOTE | 2019-01-01 18:19 | NUR ---
END OF SHIFT SUMMARY: THIS MORNING, PATIENT REPORTED THAT SHE IS FEELING BETTER. HOWEVER, THROUGHOUT THE DAY, THAT PATIENT CONTINUED TO REPORT FEELING UNWELL. MEDICATED ONCE FOR BACK/HIP PAIN AND ONCE FOR NAUSEA (SEE EMAR). PATIENT TOLERATED ENSURE WITHOUT NAUSEA. PATIENT ATTEMPTING TO EAT AND REPORTS THAT SHE HAS NO TASTE FOR FOOD. ABDOMEN CONTINUES TO BE DISTENDED. PATIENT REPORTS THAT THIS IS NORMAL. CONTINUES TO HAVE LIQUID STOOL. EVERY TIME THE PATIENT IS REPOSITIONED, MORE STOOL AND GAS IS PASSED. PATIENT CONTINUES TO BE INCONTINENT OF BOTH. PATIENT WILL BE POTENTIALLY ABLE TO DISCHARGE TOMORROW BACK TO [facility].
[2019-01-02 05:30] LABS: BASOPHILS ABSOLUTE AUTO 0.03 K/mm3 (0.00-0.23); BASOPHILS PERCENT AUTO 0 % (0-2); EOSINOPHILS ABSOLUTE AUTO 0.13 K/mm3 (0.00-0.68); EOSINOPHILS PERCENT AUTO 1 % (0-6); Hematocrit 35.1 % (33.0-51.0); Hemoglobin 11.3 g/dL (11.5-16.0); IMMATURE GRAN ABSOLUTE AUTO 0.19 K/mm3 (0.00-0.10); IMMATURE GRAN PERCENT AUTO 2 % (0-1); LYMPHOCYTES ABSOLUTE AUTO 1.23 K/mm3 (0.84-5.20); LYMPHOCYTES PERCENT AUTO 11 % (21-46); MONOCYTES ABSOLUTE AUTO 0.63 K/mm3 (0.16-1.47); MONOCYTES PERCENT AUTO 6 % (4-13); Mean Corpuscular HGB 29.5 pg (26.0-34.0); Mean Corpuscular HGB Conc 32.2 g/dL (31.5-36.5); Mean Corpuscular Volume 92 fL (80-100); Mean Platelet Volume 9.2 fL (9.1-12.4); NEUTROPHILS ABSOLUTE AUTO 9.25 K/mm3 (1.96-9.15); NEUTROPHILS PERCENT AUTO 81 % (41-73); Platelet Count 192 K/mm3 (150-400); RDW Coefficient Variation 14.5 % (11.7-14.2); Red Blood Cell Count 3.83 M/mm3 (3.80-5.20); White Blood Cell Count 11.46 K/mm3 (4.00-11.30)
[2019-01-02 05:42] LABS: International Normalized Ratio 2.46
[2019-01-02 06:06] LABS: Anion Gap 6 mmol/L (6-16); Blood Urea Nitrogen 35 mg/dL (8-24); Bun/Creatinine Ratio 38.4 (12.0-20.0); CO2, Blood 22 mmol/L (21-32); Chloride, Blood 105 mmol/L (98-108); Creatinine, Blood 0.91 mg/dL (0.40-1.00); Glomerular Filtration Rate >60 (60-); Glucose, Blood 106 mg/dL (70-99); Potassium, Blood 3.8 mmol/L (3.5-5.5); Sodium, Blood 133 mmol/L (136-145)
--- NOTE | 2019-01-02 17:44 | NUR ---
SHIFT SUMMARY PT HAD TWO LOOSE STOOL EPISODES. ONE CONT. ONE INCONT. PT STATES THE FREQUENCY IS DECREASING. PT CHANGES IN ASSESSMENT AT THIS TIME. VSS. PT DENIES NEED FOR PAIN MEDS. PT FINISHING SECOND BAG OF NSKCL 20 MEQ. TOLERATING WELL. WILL CONTINUE TO MONITOR UNTIL TURNOVER IS COMPLETE.
--- NOTE | 2019-01-03 04:54 | NUR ---
SHIFT SUMMARY: 88 Y/O FEMALE STAYED UP MOST OF NIGHT, PT HAD COUGHING EPISODE X 2 AND C/O RIGHT SIDED FLANK DISCOMFORT, TYLENOL 650MG PO GIVEN X 1 WITHOUT RELIEF, DR MCCORMACK NOTIFIED WITH ORDERS, FENTANYL 25MG IVP X 1 GIVEN WITH RELIEF FELT, TELEMETRY RELFECTS NSR AND FIRST DEGREE HEART BLOCK WIT HEART RATE 70 PER CHRISTIANNE, AX SURVEY WORKER, DENIES NAUSEA, PT HAD DIARRHEA X 3 LAST NIGHT (MEDIUM AMOUNT), WEARING ATTENDS, ALERT AND ORIENTED X 4, BED ALARM APPLIED, BED LOW POSITION, CALL LIGHT AT SIDE.
[2019-01-03 05:19] LABS: International Normalized Ratio 1.77; Prothrombin Time Results 17.8 Sec (9.7-11.5)
--- NOTE | 2019-01-03 18:18 | NUR ---
SHIFT SUMMARY PATIENT MEDICATED X 1 FOR NAUSEA. PATIENT DENIES PAIN AND SHORTNESS OF BREATH. STATES ABDOMEN TENDER TO PALPATION. PATIENT HAS HAD COUGH OFF AND ON DURING SHIFT. CHEST XRAY DONE TODAY. NEW ORDERS FOR PRN ALBUTEROL GIVEN. PATIENT HAD EPISODE OF CONFUSION THIS AFTERNOON WITH DISROBING AND DELUSIONS. PATIENT APPEARS TO HAVE RETURNED TO BASELINE THIS EVENING AFTER A LONG NAP. CALL LIGHT IN REACH.
--- NOTE | 2019-01-04 04:25 | NUR ---
SHIFT SUMMARY: 88 Y/O OBESE FEMALE RESTED COMFORTABLY ALL SHIFT, DENIES PAIN OR NAUSEA, ALERT AND ORIENTED X 2, ABLE FOLLOW SIMPLE VERBAL COMMANDS, TURNED BY STAFF EVERY 2 HOURS, INCONTINENT URINE, BED ALARM APPLIED, BED LOW POSITION WITH CALL LIGHT AT SIDE.
[2019-01-04 05:19] LABS: BASOPHILS ABSOLUTE AUTO 0.07 K/mm3 (0.00-0.23); BASOPHILS PERCENT AUTO 1 % (0-2); EOSINOPHILS PERCENT AUTO 2 % (0-6); Hematocrit 35.3 % (33.0-51.0); IMMATURE GRAN ABSOLUTE AUTO 0.68 K/mm3 (0.00-0.10); IMMATURE GRAN PERCENT AUTO 6 % (0-1); LYMPHOCYTES ABSOLUTE AUTO 1.32 K/mm3 (0.84-5.20); LYMPHOCYTES PERCENT AUTO 11 % (21-46); MONOCYTES ABSOLUTE AUTO 0.95 K/mm3 (0.16-1.47); MONOCYTES PERCENT AUTO 8 % (4-13); Mean Corpuscular HGB 28.6 pg (26.0-34.0); Mean Corpuscular HGB Conc 31.2 g/dL (31.5-36.5); Mean Corpuscular Volume 92 fL (80-100); Mean Platelet Volume 9.1 fL (9.1-12.4); NEUTROPHILS ABSOLUTE AUTO 8.69 K/mm3 (1.96-9.15); NEUTROPHILS PERCENT AUTO 73 % (41-73); Platelet Count 220 K/mm3 (150-400); RDW Coefficient Variation 14.6 % (11.7-14.2); RDW Standard Deviation 49.1 fL (35.1-46.3); Red Blood Cell Count 3.85 M/mm3 (3.80-5.20); White Blood Cell Count 11.91 K/mm3 (4.00-11.30)
[2019-01-04 05:33] LABS: International Normalized Ratio 2.59; Prothrombin Time Results 25.2 Sec (9.7-11.5)
[2019-01-04 05:40] LABS: Alanine Aminotransfer (ALT/SGP 19 U/L (12-78); Albumin, Blood 2.2 g/dL (3.4-5.0); Albumin/Globulin Ratio 0.8 (0.8-1.8); Alk Phos 69 U/L (50-136); Anion Gap 5 mmol/L (6-16); Aspartate Aminotrans (AST/SGOT 24 U/L (12-37); BAND PERCENT MAN 1 % (0-8); BASOPHILS PERCENT MAN 0 % (0-2); Bilirubin, Total 0.5 mg/dL (0.1-1.0); Blood Urea Nitrogen 10 mg/dL (8-24); Bun/Creatinine Ratio 16.5 (12.0-20.0); CO2, Blood 23 mmol/L (21-32); Calcium, Blood 7.9 mg/dL (8.5-10.1); Chloride, Blood 108 mmol/L (98-108); Creatinine, Blood 0.61 mg/dL (0.40-1.00); EOSINOPHILS ABSOLUTE MAN 0.23 K/mm3 (0.00-0.68); EOSINOPHILS PERCENT MAN 2 % (0-6); Globulin, Blood 2.9 g/dL (2.2-4.0); Glomerular Filtration Rate >60 (60-); Glucose, Blood 102 mg/dL (70-99); LYMPHOCYTES ABSOLUTE MAN 1.42 K/mm3 (0.84-5.20); LYMPHOCYTES PERCENT MAN 12 % (21-46); METAMYELOCYTE ABSOLUTE MAN 0.23 K/mm3 (0.00-0.00); METAMYELOCYTE PERCENT MAN 2 % (0-0); MONOCYTES ABSOLUTE MAN 0.95 K/mm3 (0.16-1.47); MONOCYTES PERCENT MAN 8 % (4-13); MYELOCYTE ABSOLUTE MAN 0.35 K/mm3 (0.00-0.00); MYELOCYTE PERCENT MAN 3 % (0-0); NEUTROPHILS ABSOLUTE MAN 8.69 K/mm3 (1.96-9.15); Potassium, Blood 4.1 mmol/L (3.5-5.5); SEG NEUTROPHILS PERCENT MAN 72 % (41-73); Sodium, Blood 136 mmol/L (136-145); TOTAL CELLS COUNTED 100; Total Protein, Blood 5.1 g/dL (6.4-8.2)
--- NOTE | 2019-01-04 17:28 | NUR ---
SHIFT SUMMARY PATIENT MEDICATED X 1 FOR PAIN. DENIES NAUSEA AND SHORTNESS OF BREATH. PATIENT CONTINUES TO HAVE FREQUENT NONPRODUCTIVE COUGH. PATIENT DECLINES TO TRY TO SIT ON SIDE OF BED, STATES SHE CANNOT EVEN SIT UP. PATIENT HAS OCCASSIONAL EPISODES OF CONFUSION. DAUGHTER JAYA IS POA AND WOULD LIKE TO BE NOTIFIED OF CHANGES IN PATIENT'S STAUS OR DISCHARGE. PATIENT DROWSY AND NAPPING MOST OF SHIFT. CALL LIGHT IN REACH.
--- NOTE | 2019-01-04 21:34 | NUR ---
PT INCONTINENT LARGE AMOUNT URINE, GOWN AND LINEN CHANGED
--- NOTE | 2019-01-05 04:37 | NUR ---
SHIFT SUMMARY: 88 Y/O OBESE FEMALE RESTED COMFORTABLY AFTER LASIX WAS GIVEN AT BEGINNING OF SHIFT, INCONTINENT LARGE AMOUNTS URINE, LUNG SOUNDS ARE DIMINISHED THROUGHOUT WITH ONLY OCCASIONAL WHEEZE, O2 AT 2L/M PER NASAL CANNULA APLIED AFTER O2 SATS WERE 85% (91% AFTER O2 APPLIED), DENIES PAIN OR NAUSEA, BED ALARM APPLIED, BED LOW POSITION WITH CALL LIGHT AT SIDE.
[2019-01-05 05:30] LABS: Hematocrit 35.7 % (33.0-51.0); Hemoglobin 11.3 g/dL (11.5-16.0); Mean Corpuscular HGB 29.4 pg (26.0-34.0); Mean Corpuscular HGB Conc 31.7 g/dL (31.5-36.5); Mean Corpuscular Volume 93 fL (80-100); Mean Platelet Volume 8.9 fL (9.1-12.4); Platelet Count 222 K/mm3 (150-400); RDW Coefficient Variation 14.6 % (11.7-14.2); RDW Standard Deviation 50.1 fL (35.1-46.3); Red Blood Cell Count 3.85 M/mm3 (3.80-5.20); White Blood Cell Count 11.13 K/mm3 (4.00-11.30)
[2019-01-05 05:51] LABS: Alanine Aminotransfer (ALT/SGP 18 U/L (12-78); Albumin, Blood 2.3 g/dL (3.4-5.0); Albumin/Globulin Ratio 0.8 (0.8-1.8); Alk Phos 68 U/L (50-136); Anion Gap 6 mmol/L (6-16); Aspartate Aminotrans (AST/SGOT 30 U/L (12-37); Bilirubin, Total 0.6 mg/dL (0.1-1.0); Blood Urea Nitrogen 13 mg/dL (8-24); Bun/Creatinine Ratio 18.5 (12.0-20.0); CO2, Blood 24 mmol/L (21-32); Calcium, Blood 7.9 mg/dL (8.5-10.1); Chloride, Blood 106 mmol/L (98-108); Globulin, Blood 2.8 g/dL (2.2-4.0); Glomerular Filtration Rate >60 (60-); Glucose, Blood 100 mg/dL (70-99); Potassium, Blood 3.9 mmol/L (3.5-5.5); Sodium, Blood 136 mmol/L (136-145); Total Protein, Blood 5.1 g/dL (6.4-8.2)
[2019-01-05 05:53] LABS: Prothrombin Time Results 43.4 Sec (9.7-11.5)
[2019-01-05 06:07] LABS: BAND PERCENT MAN 1 % (0-8); BASOPHILS PERCENT MAN 0 % (0-2); EOSINOPHILS ABSOLUTE MAN 0.11 K/mm3 (0.00-0.68); EOSINOPHILS PERCENT MAN 1 % (0-6); LYMPHOCYTES ABSOLUTE MAN 1.11 K/mm3 (0.84-5.20); LYMPHOCYTES PERCENT MAN 10 % (21-46); METAMYELOCYTE ABSOLUTE MAN 0.33 K/mm3 (0.00-0.00); METAMYELOCYTE PERCENT MAN 3 % (0-0); MONOCYTES ABSOLUTE MAN 0.89 K/mm3 (0.16-1.47); MONOCYTES PERCENT MAN 8 % (4-13); MYELOCYTE ABSOLUTE MAN 0.11 K/mm3 (0.00-0.00); MYELOCYTE PERCENT MAN 1 % (0-0); NEUTROPHILS ABSOLUTE MAN 8.57 K/mm3 (1.96-9.15); SEG NEUTROPHILS PERCENT MAN 76 % (41-73); TOTAL CELLS COUNTED 100
[2019-01-05 06:10] LABS: International Normalized Ratio 4.71
--- NOTE | 2019-01-05 16:57 | NUR ---
SHIFT SUMMARY: NO ACUTE CHANGES TO REPORT THIS SHIFT. PT A&O; SLEEPING T/O SHIFT; CALM AND COOPERATIVE WITH CARE. PT ON BEDREST; WHEELCHAIR BOUND AT BASELINE. O2 @ 2L VIA NASAL CANNULA; CPAP ORDERED THIS SHIFT. POC GLUCOSE STABLE T/O SHIFT. NO C/O PAIN OR NAUSEA THIS SHIFT. POSSIBLE ASPIRATION; SPEECH EVAL ORDERED. POSSIBLE D/C BACK TO [facility] IN NEXT 24-48 HOURS. WCTM.
--- NOTE | 2019-01-06 04:43 | NUR ---
SHIFT SUMMARY: 88 Y/O OBESE FEMALE RESTED COMFORTABLY ALL SHIFT WHILE WEARING C/PAP, DENIES PAIN OR NAUSEA, INCONTINENT BLADDER, ALERT AND ORIENTED X 2, ABLE TO FOLLOW ALL SIMPLE VERBAL COMMANDS, POSSIBLE DISCHARGE TODAY BACK TO [facility], BED ALARM APPLIED, BED LOW POSITION WITH CALL LIGHT AT SIDE.
[2019-01-06 05:18] LABS: Hematocrit 31.6 % (33.0-51.0); Hemoglobin 10.1 g/dL (11.5-16.0); Mean Corpuscular HGB 29.1 pg (26.0-34.0); Mean Corpuscular Volume 91 fL (80-100); Mean Platelet Volume 9.4 fL (9.1-12.4); Platelet Count 214 K/mm3 (150-400); RDW Coefficient Variation 14.4 % (11.7-14.2); RDW Standard Deviation 48.2 fL (35.1-46.3); Red Blood Cell Count 3.47 M/mm3 (3.80-5.20); White Blood Cell Count 9.68 K/mm3 (4.00-11.30)
[2019-01-06 05:38] LABS: Anion Gap 7 mmol/L (6-16); Blood Urea Nitrogen 15 mg/dL (8-24); Bun/Creatinine Ratio 25.3 (12.0-20.0); CO2, Blood 23 mmol/L (21-32); Calcium, Blood 7.6 mg/dL (8.5-10.1); Chloride, Blood 105 mmol/L (98-108); Creatinine, Blood 0.59 mg/dL (0.40-1.00); Glomerular Filtration Rate >60 (60-); Glucose, Blood 94 mg/dL (70-99); Potassium, Blood 3.7 mmol/L (3.5-5.5); Sodium, Blood 135 mmol/L (136-145)
[2019-01-06 05:44] LABS: BAND PERCENT MAN 1 % (0-8); BASOPHILS PERCENT MAN 0 % (0-2); EOSINOPHILS ABSOLUTE MAN 0.48 K/mm3 (0.00-0.68); EOSINOPHILS PERCENT MAN 5 % (0-6); LYMPHOCYTES ABSOLUTE MAN 1.64 K/mm3 (0.84-5.20); LYMPHOCYTES PERCENT MAN 17 % (21-46); METAMYELOCYTE ABSOLUTE MAN 0.29 K/mm3 (0.00-0.00); METAMYELOCYTE PERCENT MAN 3 % (0-0); MONOCYTES ABSOLUTE MAN 0.58 K/mm3 (0.16-1.47); MONOCYTES PERCENT MAN 6 % (4-13); MYELOCYTE ABSOLUTE MAN 0.29 K/mm3 (0.00-0.00); MYELOCYTE PERCENT MAN 3 % (0-0); NEUTROPHILS ABSOLUTE MAN 6.38 K/mm3 (1.96-9.15); SEG NEUTROPHILS PERCENT MAN 65 % (41-73); TOTAL CELLS COUNTED 100
[2019-01-06 06:22] LABS: International Normalized Ratio 4.43
--- NOTE | 2019-01-06 20:04 | NUR ---
SUMMARY- PT ALERT AND ORIENTED- DECONDITIONED DEPENDANT IN CARE. FEEDS SELF, HAS A POOR APPETITE, BUT TAKING IN SUFFIEICNT FLUIDS. INCONT OF URINE AND HAVING CLEAR MUCOUSY STOOLS. SKIN IN GROIN RED AND YEASTY APPEARING, REPORTED FOR NOC RN TO START NYSTATIN. PT TURNED SIDE TO SIDE, HAS 2 AREAS 1CM EACH OF NONBLANCHABLE PURPLE. PT'S LUNGS HAVE SCATTERED RHONCHI, A FREQ MOIST COUGH WITH OCC PRODUCTION. ON CONT PULSE OX. EXP WHEEZE AT TIMES. STARTED SOLUMEDROL THIS PM.
--- NOTE | 2019-01-07 05:17 | NUR ---
SHIFT SUMMARY AOX SELF AND PLACE. LS WHEEZY IN BASES. PT C/O SOB, 2L O2 VIA NC AT 96%. CPAP AT NIGHT. CONT PULSE OX. PT REPORTS SOME NAUSEA, NO PRNS GIVEN. NO C/O PAIN. L FA IV IS SL. BEDCHECK FOR SAFETY, NO ALARMS THROUGHOUT THE NIGHT. NYSTATIN POWDER APPLIED TO GROIN FOLDS. NO INSULIN COVERAGE REQUIRED. PILLS WHOLE IN APPLESAUCE. VSS. UNSURE OF DC PLAN AT THIS TIME.
[2019-01-07 05:30] LABS: Hematocrit 34.4 % (33.0-51.0); Hemoglobin 10.9 g/dL (11.5-16.0); Mean Corpuscular HGB 28.5 pg (26.0-34.0); Mean Corpuscular HGB Conc 31.7 g/dL (31.5-36.5); Mean Corpuscular Volume 90 fL (80-100); Platelet Count 278 K/mm3 (150-400); RDW Coefficient Variation 14.5 % (11.7-14.2); RDW Standard Deviation 47.3 fL (35.1-46.3); Red Blood Cell Count 3.82 M/mm3 (3.80-5.20); White Blood Cell Count 8.89 K/mm3 (4.00-11.30)
[2019-01-07 06:00] LABS: International Normalized Ratio 2.58; Prothrombin Time Results 25.1 Sec (9.7-11.5)
[2019-01-07 06:04] LABS: BAND PERCENT MAN 2 % (0-8); BASOPHILS PERCENT MAN 0 % (0-2); EOSINOPHILS PERCENT MAN 0 % (0-6); LYMPHOCYTES ABSOLUTE MAN 0.97 K/mm3 (0.84-5.20); LYMPHOCYTES PERCENT MAN 11 % (21-46); METAMYELOCYTE ABSOLUTE MAN 0.35 K/mm3 (0.00-0.00); METAMYELOCYTE PERCENT MAN 4 % (0-0); MONOCYTES PERCENT MAN 0 % (4-13); MYELOCYTE ABSOLUTE MAN 0.08 K/mm3 (0.00-0.00); MYELOCYTE PERCENT MAN 1 % (0-0); NEUTROPHILS ABSOLUTE MAN 7.46 K/mm3 (1.96-9.15); SEG NEUTROPHILS PERCENT MAN 82 % (41-73); TOTAL CELLS COUNTED 100
--- NOTE | 2019-01-07 12:46 | NUR ---
PATIENT IS ALERT AND ORIENTED WITH INTERMITTENT FORGETFULLNESS TODAY. PATIENT HAD FAMILY AT THE BEDSIDE THIS MORNING. SHE IS CURRENTLY EATING LUNCH IN BED. WILL CONTINUE TO MONITOR
--- NOTE | 2019-01-07 18:21 | NUR ---
PATIENT IS ALERT AND ORIENTED. SHE IS INCONTINENT. SHE CALLS APPROPRIATELY. Q2H TURNS. SHE HAS A WOUND ON HER COCCYX. SHE HAD FRIENDS/FAMILY AT THE BEDSIDE TODAY. ATTENDS IN PLACE. WILL CONTINUE TO MONITOR
[2019-01-08 05:24] LABS: International Normalized Ratio 2.22; Prothrombin Time Results 21.9 Sec (9.7-11.5)
--- NOTE | 2019-01-08 05:29 | NUR ---
SHIFT SUMMARY NO ASSESSMENT CHANGES. CPAP OVERNIGHT. NO C/O PAIN. NYSTATIN POWDER APPLIED TO GROIN AREA. BLOOD SUGARS STABLE, NO INSULIN REQUIRED. L FA IV IS SL. MEDS W/APPLESAUCE. VSS.
[2019-01-08] MEDS ORDERED: Humulin R500 UNIT/1 SC (12:02)
[2019-01-08] MEDS ORDERED: Florastor250 MG PO (12:02)
[2019-01-08] MEDS ORDERED: Fiber Therapy0.52 GM PO (12:03)
--- NOTE | 2019-01-08 13:00 | NUR ---
REPORT CALLED TO GAYE AT [facility]. PT STAND PIVOT TRANSFER TO W/C AT DISCHARGE. SOB WITH ACTIVITY AND AFTER COUGHING. TO CURB VIA W/C.
== END 2019-01-08 12:45 | DRG 371 ==
LOC: ER 11:06 → MEDS 11:07 → ER 17:09 → MEDS 17:09
PROVIDERS: Emergency Medicine; ADMIT Family Medicine
DX: A04.0 Enteropathogenic Escherichia coli infection (principal); G92 Toxic encephalopathy; E87.1 Hypo-osmolality and hyponatremia; E87.2 Acidosis; N17.9 Acute kidney failure, unspecified; J44.1 Chronic obstructive pulmonary disease with (acute) exacerbation; K21.9 Gastro-esophageal reflux disease without esophagitis; E03.9 Hypothyroidism, unspecified; Z66 Do not resuscitate; E87.5 Hyperkalemia; Z96.641 Presence of right artificial hip joint; Z96.652 Presence of left artificial knee joint; Z68.37 Body mass index [BMI] 37.0-37.9, adult; R32 Unspecified urinary incontinence; E86.1 Hypovolemia; G31.84 Mild cognitive impairment of uncertain or unknown etiology; R63.0 Anorexia; G47.33 Obstructive sleep apnea (adult) (pediatric)
CPT/HCPCS: 0097U; 36415; 71045; 74177; 80047; 80048; 80053; 82272; 82947; 83605; 85014; 85025; 85610; 86850; 86900; 86901; 87040; 92526; 92610; 93005; 93010; 94640; 94660; 94760; 94762; 96367; 96375; 96376; 99285-25; A9270; C9113; G0378; J0744; J1815; J1940; J1956; J2405; J2920; J3010; J3480; J7030; J7050; J7509; Q9967

== ENCOUNTER → 2019-04-21 | Outpatient (CLI) | payer MEDICARE, OTHER ==
[~2019-04-21] MED LIST changes: +AMLO10 PO; +ASCO500 PO; +Aspir 8181 MG PO; +CARV6.25 PO; +EUTHYROX150 MCG PO; +FURO20 PO; +Ferrous Sulfat325 MG PO; +Fiber Therapy0.52 GM PO; +Fleet Enema132 ML PR; +Florastor250 MG PO; +GLYCERIN1 EACH PR; +Hair, Skin & N1 EACH PO; +Humulin R500 UNIT/1 SC; +LOSA50 PO; +MOTION RELIEF25 MG PO; +OMEPRAZOLE MAGN20 MG PO; +ONDA4ODT SL; +POTA10T PO; +Pedi-Dri 100,0060 GM TOP; +Pravachol40 MG PO; +TROSPIUM CHLORI20 MG PO; +Tessalon200 MG PO; +[UNRECOGNIZED DRUG - OTHER] PO
[2019-04-21 10:41] LABS: Albumin, Blood 2.4 g/dL (3.4-5.0); Anion Gap 6 mmol/L (6-16); Blood Urea Nitrogen 10 mg/dL (8-24); CO2, Blood 26 mmol/L (21-32); Chloride, Blood 102 mmol/L (98-108); Creatinine, Blood 0.71 mg/dL (0.40-1.00); Glomerular Filtration Rate >60 (60-); Glucose, Blood 117 mg/dL (70-99); Phosphorus, Blood 2.9 mg/dL (2.5-4.9); Sodium, Blood 134 mmol/L (136-145)
== END | disposition home or self-care (01) ==
LOC: LAB RH 08:16 → EDSTATUS 13:04
PROVIDERS: Nurse Practitioner Family
DX: N17.9 Acute kidney failure, unspecified (principal)
CPT/HCPCS: 36415; 80069

== ENCOUNTER → 2019-05-07 | Outpatient (CLI) | payer MEDICARE, OTHER ==
[2019-05-07 09:54] LABS: International Normalized Ratio 2.38; Prothrombin Time Results 24.2 Sec (9.7-11.5)
== END | disposition home or self-care (01) ==
LOC: LAB RH 07:58 → EDSTATUS 15:19 → LAB RH 15:19
PROVIDERS: Nurse Practitioner Family
DX: I48.91 Unspecified atrial fibrillation (principal)
CPT/HCPCS: 36415; 85610

== ENCOUNTER → 2019-05-21 | Outpatient (CLI) | payer MEDICARE, OTHER ==
[2019-05-21 11:16] LABS: International Normalized Ratio 3.85; Prothrombin Time Results 38.2 Sec (9.7-11.5)
== END | disposition home or self-care (01) ==
LOC: LAB RH 07:51 → EDSTATUS 11:42
PROVIDERS: Nurse Practitioner Family
DX: I48.91 Unspecified atrial fibrillation (principal)
CPT/HCPCS: 36415; 85610

== ENCOUNTER → 2019-05-28 | Outpatient (CLI) | payer MEDICARE, OTHER ==
[2019-05-28 10:35] LABS: Prothrombin Time Results 41.1 Sec (9.7-11.5)
[2019-05-28 10:39] LABS: International Normalized Ratio 4.16
== END | disposition home or self-care (01) ==
LOC: LAB RH 09:02 → EDSTATUS 13:48
PROVIDERS: Nurse Practitioner Family
DX: I35.0 Nonrheumatic aortic (valve) stenosis (principal)
CPT/HCPCS: 36415; 85610

== ENCOUNTER → 2019-06-05 | Outpatient (CLI) | payer MEDICARE, OTHER ==
[2019-06-05 09:47] LABS: International Normalized Ratio 2.41; Prothrombin Time Results 24.5 Sec (9.7-11.5)
== END ==
LOC: LAB RH 07:49 → EDSTATUS 15:28 → LAB RH 15:29
PROVIDERS: Nurse Practitioner Family
DX: I48.91 Unspecified atrial fibrillation (principal)
CPT/HCPCS: 36415; 85610

== ENCOUNTER → 2019-06-12 | Outpatient (CLI) | payer MEDICARE, OTHER ==
[2019-06-12 08:40] LABS: International Normalized Ratio 1.99; Prothrombin Time Results 20.5 Sec (9.7-11.5)
== END | disposition home or self-care (01) ==
LOC: LAB RH 07:30 → EDSTATUS 15:30
PROVIDERS: Nurse Practitioner Family
DX: I48.91 Unspecified atrial fibrillation (principal)
CPT/HCPCS: 36415; 85610

== ENCOUNTER → 2019-06-19 | Outpatient (CLI) | payer MEDICARE, OTHER ==
[2019-06-19 09:51] LABS: International Normalized Ratio 1.8; Prothrombin Time Results 18.6 Sec (9.7-11.5)
== END | disposition home or self-care (01) ==
LOC: LAB RH 06:10 → EDSTATUS 11:12 → LAB RH 11:13
PROVIDERS: Nurse Practitioner Family
DX: I48.91 Unspecified atrial fibrillation (principal)
CPT/HCPCS: 36415; 85610

== ENCOUNTER → 2019-07-03 | Outpatient (CLI) | payer MEDICARE, OTHER ==
[2019-07-03 12:00] LABS: International Normalized Ratio 2.13; Prothrombin Time Results 21.8 Sec (9.7-11.5)
== END | disposition home or self-care (01) ==
LOC: LAB RH 09:31 → EDSTATUS 10:59
PROVIDERS: Nurse Practitioner Family
DX: I48.91 Unspecified atrial fibrillation (principal)
CPT/HCPCS: 85610

== ENCOUNTER → 2020-04-13 | Outpatient (CLI) | payer MEDICARE, OTHER ==
[~2020-04-13] MED LIST changes: +ALBU90OI INH; +CARV3.125 PO; +ESCI5 PO; +MIRALAX17 GM PO; +PANT20 PO; +WARF3
[2020-04-13 09:02] LABS: Prothrombin Time Results 60.6 Sec (9.7-11.5)
[2020-04-13 09:20] LABS: International Normalized Ratio 6.28
[2020-04-13 13:40] LABS: Alanine Aminotransfer (ALT/SGP 23 U/L (12-78); Albumin, Blood 2.2 g/dL (3.4-5.0); Albumin/Globulin Ratio 0.8 (0.8-1.8); Alk Phos 100 U/L (50-136); Anion Gap 4 mmol/L (6-16); Aspartate Aminotrans (AST/SGOT 28 U/L (12-37); Bilirubin, Total 0.3 mg/dL (0.1-1.0); Blood Urea Nitrogen 13 mg/dL (8-24); Bun/Creatinine Ratio 21.8 (12.0-20.0); CO2, Blood 29 mmol/L (21-32); Calcium, Blood 7.9 mg/dL (8.5-10.1); Chloride, Blood 103 mmol/L (98-108); Globulin, Blood 2.9 g/dL (2.2-4.0); Glomerular Filtration Rate >60 (60-); Glucose, Blood 94 mg/dL (70-99); Potassium, Blood 4.3 mmol/L (3.5-5.5); Sodium, Blood 136 mmol/L (136-145); Total Protein, Blood 5.1 g/dL (6.4-8.2)
== END | disposition home or self-care (01) ==
LOC: LAB RH 08:31
PROVIDERS: Nurse Practitioner Family
DX: Z79.01 Long term (current) use of anticoagulants (principal); Z51.81 Encounter for therapeutic drug level monitoring
CPT/HCPCS: 80053; 85610

== ENCOUNTER → 2020-05-12 | Outpatient (CLI) | payer MEDICARE, OTHER ==
[2020-05-12 16:04] LABS: Prothrombin Time Results 43.6 Sec (9.7-11.5)
[2020-05-12 16:13] LABS: International Normalized Ratio 4.43
== END | disposition home or self-care (01) ==
LOC: EDSTATUS 11:17 → LAB RH 12:36
PROVIDERS: Nurse Practitioner Family
DX: I48.91 Unspecified atrial fibrillation (principal)
CPT/HCPCS: 85610

== ENCOUNTER → 2020-09-24 | Outpatient (CLI) | payer MEDICARE, OTHER ==
[2020-09-24 12:39] LABS: Appearance, Urine Clear (Clear); Bilirubin, Urine Neg (Neg); Blood, Urine 1+ (Neg); Color, Urine Yellow (P-Yellow); Glucose Qualitative, Urine Neg (Neg); Ketones, Urine Neg (Neg); Leukocyte Esterase, Urine 3+ (Neg); Nitrite, Urine Neg (Neg); Protein, Urine 3+ (Neg); Specific Gravity, Urine 1.005 (1.003-1.022); Urobilinogen, Urine NORM (Normal)
[2020-09-24 12:52] LABS: Bacteria Few /hpf; Red Blood Cells, Urine 0-2 /hpf (0-2); Squamous Epithelial Cells Rare /hpf (Few)
== END | disposition home or self-care (01) ==
LOC: EDSTATUS 10:27 → LAB RH 10:29
PROVIDERS: Nurse Practitioner Family
DX: R82.90 Unspecified abnormal findings in urine (principal)
CPT/HCPCS: 81001; 87086

== ENCOUNTER → 2020-10-05 | Outpatient (CLI) | payer MEDICARE, OTHER ==
[2020-10-05 12:31] LABS: International Normalized Ratio 2.88; Prothrombin Time Results 29.3 Sec (9.7-11.5)
== END ==
LOC: EDSTATUS 09:47 → LAB RH 10:52
PROVIDERS: Nurse Practitioner Family
DX: I48.91 Unspecified atrial fibrillation (principal); E11.9 Type 2 diabetes mellitus without complications; Z79.82 Long term (current) use of aspirin; Z79.4 Long term (current) use of insulin
CPT/HCPCS: 85610

== ENCOUNTER 2020-10-24 10:07 | Emergency (ER) | payer MEDICARE, OTHER ==
[~2020-10-24] VITALS: Ht 167.6 cm; Wt 90.7 kg
[~2020-10-24 10:07] MED LIST changes: -ALBU90OI INH; -CARV3.125 PO; -ESCI5 PO; -MIRALAX17 GM PO; -PANT20 PO; -WARF3
[2020-10-24] MEDS ORDERED: MIRALAX17 GM PO (10:31)
[2020-10-24] MEDS ORDERED: ESCI5 PO (10:31)
[2020-10-24 10:32] LABS: BASOPHILS ABSOLUTE AUTO 0.05 K/mm3 (0.00-0.23); BASOPHILS PERCENT AUTO 1 % (0-2); EOSINOPHILS ABSOLUTE AUTO 0.12 K/mm3 (0.00-0.68); EOSINOPHILS PERCENT AUTO 2 % (0-6); Hematocrit 39.8 % (33.0-51.0); Hemoglobin 12.6 g/dL (11.5-16.0); IMMATURE GRAN ABSOLUTE AUTO 0.07 K/mm3 (0.00-0.10); IMMATURE GRAN PERCENT AUTO 1 % (0-1); LYMPHOCYTES ABSOLUTE AUTO 1.97 K/mm3 (0.84-5.20); LYMPHOCYTES PERCENT AUTO 30 % (21-46); MONOCYTES ABSOLUTE AUTO 0.44 K/mm3 (0.16-1.47); MONOCYTES PERCENT AUTO 7 % (4-13); Mean Corpuscular HGB 28.9 pg (26.0-34.0); Mean Corpuscular HGB Conc 31.7 g/dL (31.5-36.5); Mean Corpuscular Volume 91 fL (80-100); Mean Platelet Volume 8.5 fL (9.1-12.4); NEUTROPHILS ABSOLUTE AUTO 3.99 K/mm3 (1.96-9.15); NEUTROPHILS PERCENT AUTO 60 % (41-73); Platelet Count 224 K/mm3 (150-400); RDW Coefficient Variation 14.1 % (11.7-14.2); RDW Standard Deviation 47.5 fL (35.1-46.3); Red Blood Cell Count 4.36 M/mm3 (3.80-5.20); White Blood Cell Count 6.64 K/mm3 (4.00-11.30)
[2020-10-24] MEDS ORDERED: PANT20 PO (10:32)
[2020-10-24] MEDS ORDERED: CARV3.125 PO (10:34)
[2020-10-24] MEDS ORDERED: ALBU90OI INH (10:36)
[2020-10-24] MEDS ORDERED: WARF3 (10:45)
[2020-10-24 10:48] LABS: Anion Gap 4 mmol/L (6-16); Blood Urea Nitrogen 10 mg/dL (8-24); Bun/Creatinine Ratio 13.4 (12.0-20.0); CO2, Blood 29 mmol/L (21-32); Calcium, Blood 8.3 mg/dL (8.5-10.1); Chloride, Blood 102 mmol/L (98-108); Creatinine, Blood 0.75 mg/dL (0.40-1.00); Glomerular Filtration Rate >60 (60-); Glucose, Blood 162 mg/dL (70-99); Potassium, Blood 4.3 mmol/L (3.5-5.5); Sodium, Blood 135 mmol/L (136-145)
[2020-10-24 10:52] LABS: Prothrombin Time Results 54.5 Sec (9.7-11.5)
[2020-10-24 10:53] LABS: International Normalized Ratio 5.56
== END 2020-10-24 14:15 ==
LOC: ER 10:07
PROVIDERS: Student in an Organized Health Care Education/Training Program
DX: S70.212A Abrasion, left hip, initial encounter (principal); R58 Hemorrhage, not elsewhere classified; R79.1 Abnormal coagulation profile; T45.515A Adverse effect of anticoagulants, initial encounter; Z79.01 Long term (current) use of anticoagulants; Z79.4 Long term (current) use of insulin; Z79.899 Other long term (current) drug therapy; Z95.4 Presence of other heart-valve replacement; Z88.0 Allergy status to penicillin; Z88.5 Allergy status to narcotic agent; Z88.8 Allergy status to other drugs, medicaments and biological substances; W22.8XXA Striking against or struck by other objects, initial encounter
CPT/HCPCS: 36415; 80048; 85025; 85610; 99284

== ENCOUNTER → 2020-10-25 | Outpatient (CLI) | payer MEDICARE, OTHER ==
[~2020-10-25] MED LIST changes: +ALBU90OI INH; +CARV3.125 PO; +ESCI5 PO; +MIRALAX17 GM PO; +PANT20 PO; +WARF3
[2020-10-25 10:04] LABS: Prothrombin Time Results 44.1 Sec (9.7-11.5)
[2020-10-25 10:09] LABS: International Normalized Ratio 4.44
== END ==
LOC: LAB RH 08:10 → EDSTATUS 09:48
PROVIDERS: Nurse Practitioner Family
DX: I48.91 Unspecified atrial fibrillation (principal); Z88.0 Allergy status to penicillin; Z88.5 Allergy status to narcotic agent; Z88.6 Allergy status to analgesic agent; Z88.1 Allergy status to other antibiotic agents; Z88.8 Allergy status to other drugs, medicaments and biological substances
CPT/HCPCS: 85610

== ENCOUNTER → 2020-10-26 | Outpatient (CLI) | payer MEDICARE, OTHER ==
[2020-10-26 10:14] LABS: Alanine Aminotransfer (ALT/SGP 19 U/L (12-78); Albumin, Blood 2.2 g/dL (3.4-5.0); Albumin/Globulin Ratio 0.8 (0.8-1.8); Alk Phos 69 U/L (50-136); Anion Gap 2 mmol/L (6-16); Aspartate Aminotrans (AST/SGOT 24 U/L (12-37); Bilirubin, Total 0.7 mg/dL (0.1-1.0); Blood Urea Nitrogen 12 mg/dL (8-24); Bun/Creatinine Ratio 18.2 (12.0-20.0); CO2, Blood 28 mmol/L (21-32); Calcium, Blood 8.3 mg/dL (8.5-10.1); Chloride, Blood 104 mmol/L (98-108); Creatinine, Blood 0.66 mg/dL (0.40-1.00); Globulin, Blood 2.7 g/dL (2.2-4.0); Glomerular Filtration Rate >60 (60-); Glucose, Blood 126 mg/dL (70-99); Sodium, Blood 134 mmol/L (136-145); Total Protein, Blood 4.9 g/dL (6.4-8.2)
== END ==
LOC: LAB RH 08:21 → EDSTATUS 09:49
PROVIDERS: Nurse Practitioner Family
DX: N17.9 Acute kidney failure, unspecified (principal); Z88.0 Allergy status to penicillin; Z88.5 Allergy status to narcotic agent; Z88.6 Allergy status to analgesic agent; Z88.1 Allergy status to other antibiotic agents; Z88.8 Allergy status to other drugs, medicaments and biological substances
CPT/HCPCS: 80053

== ENCOUNTER → 2020-11-08 | Outpatient (CLI) | payer MEDICARE, OTHER ==
[2020-11-08 20:04] LABS: Appearance, Urine Hazy (Clear); Bilirubin, Urine Neg (Neg); Blood, Urine 3+ (Neg); Glucose Qualitative, Urine Neg (Neg); Ketones, Urine Neg (Neg); Leukocyte Esterase, Urine 3+ (Neg); Nitrite, Urine Neg (Neg); Protein, Urine 3+ (Neg); Urobilinogen, Urine NORM (Normal); pH, Urine 6.5 (5.0-8.0)
[2020-11-08 20:24] LABS: Bacteria Many /hpf; Color, Urine Yellow (P-Yellow); Red Blood Cells, Urine 0-2 /hpf (0-2); Squamous Epithelial Cells Few /hpf (Few); White Blood Cells, Urine TNTC /hpf (0-5)
== END | disposition home or self-care (01) ==
LOC: EDSTATUS 09:17 → LAB RH 19:12
PROVIDERS: Nurse Practitioner Family
DX: N39.0 Urinary tract infection, site not specified (principal)
CPT/HCPCS: 81001; 87077; 87086; 87186

== ENCOUNTER → 2020-12-01 | Outpatient (CLI) | payer MEDICARE, OTHER ==
[2020-12-01 12:27] LABS: International Normalized Ratio 2.04; Prothrombin Time Results 21.2 Sec (9.7-11.5)
== END | disposition home or self-care (01) ==
LOC: LAB RH 11:11 → EDSTATUS 12:16
PROVIDERS: Nurse Practitioner Family
DX: I48.91 Unspecified atrial fibrillation (principal)
CPT/HCPCS: 85610

== ENCOUNTER → 2020-12-08 | Outpatient (CLI) | payer MEDICARE, OTHER ==
[2020-12-08 13:04] LABS: International Normalized Ratio 2.77; Prothrombin Time Results 28.2 Sec (9.7-11.5)
== END | disposition home or self-care (01) ==
LOC: EDSTATUS 12:17 → LAB RH 12:32
PROVIDERS: Nurse Practitioner Family
DX: I48.91 Unspecified atrial fibrillation (principal)
CPT/HCPCS: 85610

== ENCOUNTER → 2020-12-15 | Outpatient (CLI) | payer MEDICARE, OTHER ==
[2020-12-15 13:21] LABS: International Normalized Ratio 5.72
== END | disposition home or self-care (01) ==
LOC: LAB RH 11:28 → EDSTATUS 12:18
PROVIDERS: Nurse Practitioner Family
DX: I48.91 Unspecified atrial fibrillation (principal)
CPT/HCPCS: 85610; 85730

== ENCOUNTER → 2021-02-09 | Outpatient (CLI) | payer MEDICARE, OTHER ==
[2021-02-09 16:31] LABS: Hematocrit 36.8 % (33.0-51.0); Hemoglobin 11.6 g/dL (11.5-16.0); Mean Corpuscular HGB 29.3 pg (26.0-34.0); Mean Corpuscular HGB Conc 31.5 g/dL (31.5-36.5); Mean Corpuscular Volume 93 fL (80-100); Mean Platelet Volume 9.4 fL (9.1-12.4); Platelet Count 185 K/mm3 (150-400); RDW Standard Deviation 48.2 fL (35.1-46.3); Red Blood Cell Count 3.96 M/mm3 (3.80-5.20); White Blood Cell Count 8.69 K/mm3 (4.00-11.30)
[2021-02-09 16:35] LABS: Appearance, Urine Clear (Clear); Bilirubin, Urine Neg (Neg); Blood, Urine Neg (Neg); Color, Urine Yellow (P-Yellow); Glucose Qualitative, Urine Neg (Neg); Ketones, Urine Neg (Neg); Leukocyte Esterase, Urine 1+ (Neg); Nitrite, Urine Neg (Neg); Protein, Urine 4+ (Neg); Urobilinogen, Urine NORM (Normal)
[2021-02-09 16:47] LABS: Calcium, Blood 8.4 mg/dL (8.5-10.1); Creatinine, Blood 0.89 mg/dL (0.40-1.00); Potassium, Blood 4.4 mmol/L (3.5-5.5)
[2021-02-09 17:11] LABS: Bacteria Few /hpf; Red Blood Cells, Urine 0-2 /hpf (0-2); Squamous Epithelial Cells Few /hpf (Few)
== END | disposition home or self-care (01) ==
LOC: EDSTATUS 09:42 → LAB RH 15:40
PROVIDERS: Nurse Practitioner Family
DX: N39.0 Urinary tract infection, site not specified (principal)
CPT/HCPCS: 80048; 81001; 85027; 87086

== ENCOUNTER → 2021-03-11 | Outpatient (CLI) | payer MEDICARE, OTHER ==
[~2021-03-11] MED LIST changes: +DOCU100 PO; +Guaifenesin Wit10 ML PO; +PRAVASTATIN SOD40 MG PO; +PSYSENPA PO; -Pravachol40 MG PO; +WARF5 PO
[2021-03-11 10:39] LABS: International Normalized Ratio 1.37; Prothrombin Time Results 14.1 Sec (9.7-11.5)
== END | disposition home or self-care (01) ==
LOC: LAB RH 09:30 → EDSTATUS 14:09
PROVIDERS: Internal Medicine
DX: I48.91 Unspecified atrial fibrillation (principal); I50.9 Heart failure, unspecified; I35.0 Nonrheumatic aortic (valve) stenosis
CPT/HCPCS: 85610; 85730

== ENCOUNTER → 2021-03-24 | Outpatient (CLI) | payer MEDICARE, OTHER ==
[2021-03-24 09:00] LABS: International Normalized Ratio 1.42; Prothrombin Time Results 14.6 Sec (9.7-11.5)
== END | disposition home or self-care (01) ==
LOC: LAB RH 08:09 → EDSTATUS 14:10
PROVIDERS: Nurse Practitioner Family
DX: I35.0 Nonrheumatic aortic (valve) stenosis (principal); I48.91 Unspecified atrial fibrillation
CPT/HCPCS: 85610

== ENCOUNTER → 2021-03-31 | Outpatient (CLI) | payer MEDICARE, OTHER ==
[2021-03-31 09:54] LABS: International Normalized Ratio 2.09; Prothrombin Time Results 20.9 Sec (9.7-11.5)
== END | disposition home or self-care (01) ==
LOC: LAB RH 08:30 → EDSTATUS 14:11
PROVIDERS: Nurse Practitioner Family
DX: I48.91 Unspecified atrial fibrillation (principal); I35.0 Nonrheumatic aortic (valve) stenosis
CPT/HCPCS: 85610

== ENCOUNTER → 2021-04-05 | Outpatient (CLI) | payer MEDICARE, OTHER ==
[2021-04-05 15:11] LABS: Hematocrit 39.6 % (33.0-51.0); Hemoglobin 12.5 g/dL (11.5-16.0); Mean Corpuscular HGB 29.4 pg (26.0-34.0); Mean Corpuscular HGB Conc 31.6 g/dL (31.5-36.5); Mean Corpuscular Volume 93 fL (80-100); Mean Platelet Volume 9.4 fL (9.1-12.4); Platelet Count 182 K/mm3 (150-400); RDW Coefficient Variation 14.1 % (11.7-14.2); RDW Standard Deviation 47.8 fL (35.1-46.3); Red Blood Cell Count 4.25 M/mm3 (3.80-5.20); White Blood Cell Count 8.37 K/mm3 (4.00-11.30)
[2021-04-05 15:15] LABS: Anion Gap 6 mmol/L (6-16); Blood Urea Nitrogen 11 mg/dL (8-24); Bun/Creatinine Ratio 15.2 (12.0-20.0); CO2, Blood 26 mmol/L (21-32); Calcium, Blood 8.4 mg/dL (8.5-10.1); Chloride, Blood 104 mmol/L (98-108); Creatinine, Blood 0.72 mg/dL (0.40-1.00); Glomerular Filtration Rate >60 (60-); Glucose, Blood 167 mg/dL (70-99); Potassium, Blood 4.2 mmol/L (3.5-5.5); Sodium, Blood 136 mmol/L (136-145)
== END | disposition home or self-care (01) ==
LOC: EDSTATUS 10:38 → LAB RH 13:37
PROVIDERS: Internal Medicine
DX: I50.9 Heart failure, unspecified (principal)
CPT/HCPCS: 80048; 83880; 85027

== ENCOUNTER 2021-05-11 04:51 | Observation (INO) | payer MEDICARE, OTHER ==
[~2021-05-11] VITALS: Ht 167.6 cm; Wt 113.4 kg
[~2021-05-11 04:51] MED LIST changes: -DOCU100 PO; -ESCI5 PO; -Guaifenesin Wit10 ML PO; -PRAVASTATIN SOD40 MG PO; -PSYSENPA PO; -WARF5 PO
[2021-05-11 05:34] LABS: BASOPHILS ABSOLUTE AUTO 0.02 K/mm3 (0.00-0.23); BASOPHILS PERCENT AUTO 0 % (0-2); EOSINOPHILS ABSOLUTE AUTO 0.16 K/mm3 (0.00-0.68); EOSINOPHILS PERCENT AUTO 3 % (0-6); Hematocrit 37.8 % (33.0-51.0); IMMATURE GRAN ABSOLUTE AUTO 0.04 K/mm3 (0.00-0.10); IMMATURE GRAN PERCENT AUTO 1 % (0-1); International Normalized Ratio 1.01; LYMPHOCYTES ABSOLUTE AUTO 2.11 K/mm3 (0.84-5.20); LYMPHOCYTES PERCENT AUTO 35 % (21-46); MONOCYTES ABSOLUTE AUTO 0.42 K/mm3 (0.16-1.47); MONOCYTES PERCENT AUTO 7 % (4-13); Mean Corpuscular HGB 28.7 pg (26.0-34.0); Mean Corpuscular HGB Conc 31.7 g/dL (31.5-36.5); Mean Corpuscular Volume 90 fL (80-100); Mean Platelet Volume 9.3 fL (9.1-12.4); NEUTROPHILS ABSOLUTE AUTO 3.35 K/mm3 (1.96-9.15); NEUTROPHILS PERCENT AUTO 55 % (41-73); Platelet Count 220 K/mm3 (150-400); Prothrombin Time Results 10.6 Sec (9.7-11.5); RDW Standard Deviation 46.6 fL (35.1-46.3); Red Blood Cell Count 4.18 M/mm3 (3.80-5.20)
[2021-05-11 05:44] LABS: Influenza A, PCR NEGATIVE (NEGATIVE); Influenza B, PCR NEGATIVE (NEGATIVE); Resp Syncytial Virus, PCR NEGATIVE (NEGATIVE)
[2021-05-11 05:48] LABS: Source, Urine Clean Catch
[2021-05-11 05:51] LABS: SARS-Cov-2 (COVID-19) PCR, MMC POSITIVE (NEGATIVE)
[2021-05-11 05:53] LABS: Alanine Aminotransfer (ALT/SGP 49 U/L (12-78); Albumin, Blood 2.7 g/dL (3.4-5.0); Albumin/Globulin Ratio 0.8 (0.8-1.8); Alk Phos 108 U/L (50-136); Anion Gap 4 mmol/L (6-16); Aspartate Aminotrans (AST/SGOT 50 U/L (12-37); Bilirubin, Total 0.7 mg/dL (0.1-1.0); Blood Urea Nitrogen 13 mg/dL (8-24); Bun/Creatinine Ratio 17.5 (12.0-20.0); CO2, Blood 29 mmol/L (21-32); Calcium, Blood 8.1 mg/dL (8.5-10.1); Chloride, Blood 103 mmol/L (98-108); Creatinine, Blood 0.74 mg/dL (0.40-1.00); Globulin, Blood 3.2 g/dL (2.2-4.0); Glomerular Filtration Rate >60 (60-); Glucose, Blood 134 mg/dL (70-99); Potassium, Blood 4.3 mmol/L (3.5-5.5); Sodium, Blood 136 mmol/L (136-145); Total Protein, Blood 5.9 g/dL (6.4-8.2)
[2021-05-11 06:07] LABS: Appearance, Urine Clear (Clear); Bilirubin, Urine Neg (Neg); Blood, Urine 2+ (Neg); Color, Urine Yellow (P-Yellow); Glucose Qualitative, Urine Neg (Neg); Ketones, Urine Neg (Neg); Leukocyte Esterase, Urine Neg (Neg); Nitrite, Urine Neg (Neg); Protein, Urine 3+ (Neg); Urobilinogen, Urine NORM (Normal)
[2021-05-11 06:24] LABS: Red Blood Cells, Urine 0-2 /hpf (0-2); Squamous Epithelial Cells Few /hpf (Few)
[2021-05-11 06:25] LABS: Bacteria Rare /hpf
[2021-05-11 07:50] LABS: CHOL/HDL RATIO 4.3; Cholesterol 137 mg/dL (50-200); HDL Cholesterol 32 mg/dL (>39); LDL/HDL RATIO 2.6; Low Density Lipoprotein Chol 83 mg/dL (0-110); Triglycerides 111 mg/dL (30-160); Very Low Density Lipoprot Chol 22 mg/dL (6-32)
[2021-05-11] MEDS ORDERED: WARF4 PO (13:57)
[2021-05-11] MEDS ORDERED: WARF5 PO (13:58)
[2021-05-11] MEDS ORDERED: PSYSENPA PO (14:00)
[2021-05-11] MEDS ORDERED: SPIR25 PO (14:00)
[2021-05-11] MEDS ORDERED: DOCU100 PO (14:01)
[2021-05-11] MEDS ORDERED: Guaifenesin Wit10 ML PO (14:04)
--- NOTE | 2021-05-11 17:54 | NUR ---
PATIENT CAME FROM ER THIS AM WITH ACUTE CVA AND COVID. ISCHEMIC STROKE SEEN ON IMAGING. LS HAVE CRACKLES/WHEEZES, HOWEVER PATIENT IS RUNNING NORMAL SA02 ON ROOM AIR. PATIENT REGAINED SOME ALERTNESS THIS AFTERNOON AND DID TRY TO TALK WITH NURSES-SPEECH SLURRED AND GARBLED, HARD TO UNDERSTAND. PATIENT SLEPT MOST OF SHIFT.
--- NOTE | 2021-05-12 04:39 | NUR ---
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 PT has covid 19 in enhanced precautions & has bilat coarse wheeze but removes oxygen when applied. Breathing labored orthopnia. NPO for failed swallow eval. Park cath patent. DNR status.
[2021-05-12 05:34] LABS: BASOPHILS ABSOLUTE AUTO 0.01 K/mm3 (0.00-0.23); BASOPHILS PERCENT AUTO 0 % (0-2); EOSINOPHILS ABSOLUTE AUTO 0.11 K/mm3 (0.00-0.68); EOSINOPHILS PERCENT AUTO 2 % (0-6); Hematocrit 37.4 % (33.0-51.0); Hemoglobin 12.1 g/dL (11.5-16.0); IMMATURE GRAN ABSOLUTE AUTO 0.03 K/mm3 (0.00-0.10); IMMATURE GRAN PERCENT AUTO 1 % (0-1); LYMPHOCYTES ABSOLUTE AUTO 2.24 K/mm3 (0.84-5.20); LYMPHOCYTES PERCENT AUTO 37 % (21-46); MONOCYTES ABSOLUTE AUTO 0.54 K/mm3 (0.16-1.47); MONOCYTES PERCENT AUTO 9 % (4-13); Mean Corpuscular HGB 29.2 pg (26.0-34.0); Mean Corpuscular HGB Conc 32.4 g/dL (31.5-36.5); Mean Corpuscular Volume 90 fL (80-100); Mean Platelet Volume 9.5 fL (9.1-12.4); NEUTROPHILS ABSOLUTE AUTO 3.12 K/mm3 (1.96-9.15); NEUTROPHILS PERCENT AUTO 52 % (41-73); Platelet Count 179 K/mm3 (150-400); RDW Standard Deviation 46.2 fL (35.1-46.3); Red Blood Cell Count 4.14 M/mm3 (3.80-5.20); White Blood Cell Count 6.05 K/mm3 (4.00-11.30)
[2021-05-12 06:01] LABS: Albumin, Blood 2.6 g/dL (3.4-5.0); Anion Gap 7 mmol/L (6-16); Blood Urea Nitrogen 10 mg/dL (8-24); Bun/Creatinine Ratio 15.6 (12.0-20.0); CO2, Blood 26 mmol/L (21-32); Calcium, Blood 8.4 mg/dL (8.5-10.1); Chloride, Blood 106 mmol/L (98-108); Creatinine, Blood 0.64 mg/dL (0.40-1.00); Glomerular Filtration Rate >60 (60-); Glucose, Blood 113 mg/dL (70-99); Phosphorus, Blood 2.1 mg/dL (2.5-4.9); Potassium, Blood 3.8 mmol/L (3.5-5.5); Sodium, Blood 139 mmol/L (136-145)
--- NOTE | 2021-05-12 07:38 | NUR ---
RN recvd handoff of patient care from HARLEY Luis Patient was in bed, asleep, and did not appear to be in any distress
--- NOTE | 2021-05-12 12:19 | NUR ---
Patient is on comfort care. She currently has 02 on 2LPM, 02sats 94%. Patient was repositioned and checked and changed. Patient does not appear to be in any distress. Family called and staed that will visit
--- NOTE | 2021-05-12 13:21 | NUR ---
Received request from bedside RN to assess pt, as pt's sister requested comort care. However, Dr. Ybarra talked to pt's sister himself and placed the pt on comfort care as requested. Will remain available, and plan for daily palliative care visits while inpatient.
--- NOTE | 2021-05-12 16:50 | NUR ---
Patient was alert and orient. She finally opened her eyes and said hi. Her famiily was supportive and both sisters have been visiting for the last two hours. She was changed and repositioned Q2H. Patient continued to be on oxygen, and has not complained of pain. Continue to monitor and ensure she is comfortable while in my care.
--- NOTE | 2021-05-12 18:25 | NUR ---
Met with pt's 2 sisters this evening, answered their questions about what to expect. They are planning to spend the night here with patient, and patient does appear comfortable at this time. Ordering a comfort cart now.
[2021-05-12] MEDS ORDERED: PRAVASTATIN SOD40 MG PO (20:04)
[2021-05-12] MEDS ORDERED: ESCI5 PO (20:04)
--- NOTE | 2021-05-13 00:51 | NUR ---
Receive patient Awake, Family at bedside requesting pain medication for her. Patient is on O2 3L VIA N/C. No complaint voices. We are monitoring patient.
--- NOTE | 2021-05-13 00:57 | NUR ---
Patient resting confortably, no acute distress noted
--- NOTE | 2021-05-13 06:53 | NUR ---
Patient resting confortably, no changes in patient status. We will continue to monitor
--- NOTE | 2021-05-13 10:20 | NUR ---
PATIENT READJUSTED IN BED FOR COMFORT. FAMILY PRESENT AT BEDSIDE.
--- NOTE | 2021-05-13 14:03 | NUR ---
PATIENT MEDICATED PER EMAR FOR COMFORT. PATIENT SUCTIONED AT BEDSIDE. ORAL CARE DONE FOR THE PATIENT. FAMILY AT BEDSIDE.
--- NOTE | 2021-05-13 14:36 | NUR ---
Pt's breathing is noisy/moist. Requested scopalamine patches and atropine drops from Dr. Ybarra as requested by bedside RN. Verbal order given and placed. No changes needed to care plan at this time.
--- NOTE | 2021-05-13 16:27 | NUR ---
TRIED TO SUCTION WHILE PERFORMING ORAL CARE. ATROPINE USED TO HELP SECRETIONS. REPOSITIONED PATIENT. FAMILY AT BEDSIDE.
--- NOTE | 2021-05-13 18:30 | NUR ---
PATIENT READJUSTED FOR COMFORT. SCOPOLAMINE PATCH APPLIED FOR SECRETIONS. PATIENT WAS MEDICATED PER MAY.
--- NOTE | 2021-05-13 22:09 | NUR ---
Received patient sleeping. Family at bed side requesting pain medication which was provided. Patient is being monitor closely.
--- NOTE | 2021-05-14 00:16 | NUR ---
Medicated patient for confort. Patient with a lot of secretions. Family at bed side.
--- NOTE | 2021-05-14 04:06 | NUR ---
No change in patient status. Confort care provided.
--- NOTE | 2021-05-14 06:31 | NUR ---
Patient remains the same, Family at bed side, medication given. We are monitoring patient.
--- NOTE | 2021-05-14 11:09 | NUR ---
PATIENT REPOSITIONED FOR COMFORT. PATIENT MEDICATED PER EMAR. ORAL CARE DONE. SUCTIONING PATIENT TOLERATED. BED BATH DONE.
--- NOTE | 2021-05-14 18:36 | NUR ---
PATIENT MEDICATED PER EMAR. FAMILY AT BEDSIDE. SUCTIONING PATIENT NEEDED. ORAL CARE DONE. REPOSITONED FOR COMFORT.
--- NOTE | 2021-05-15 07:50 | NUR ---
Pt given PRN medications Ativan and morphine for comfort. Patient has not had a BM and continues to void through attached zheng. Reposition and comfort care charting performed 2hrs. Patient's sisters at [facility] went home for the night but will be back for the day shift.
--- NOTE | 2021-05-15 08:00 | NUR ---
REMOISTENED MOUTH VIA SWAB SUCTION, SUCTIONED MOUTH, MEDICATED W/ ATROPINE DROPS FOR SECRETIONS. PROPPED ARM UP ON PILLOW FOR COMFORT. APPLIED CHAP STICK.
--- NOTE | 2021-05-15 16:00 | NUR ---
PT REPOSITIONED, MEDICATED, SUCTIONED ORAL SECRECTIONS, SWABBED MOUTH AND APPLED CHAP STICK. SISTER @ BEDSIDE.
--- NOTE | 2021-05-15 17:04 | NUR ---
PT 2ND RN CHECK W/ SALOMÓN RN, SISTER @ BEDSIDE. TOD 1650. PLAN TO NOTIFY [facility] IN [place].
== END 2021-05-15 16:50 ==
LOC: ER 04:51 → MEDS 04:52
PROVIDERS: Emergency Medicine; Internal Medicine; ADMIT Family Medicine
DX: I63.9 Cerebral infarction, unspecified (principal); E11.9 Type 2 diabetes mellitus without complications; I10 Essential (primary) hypertension; I44.0 Atrioventricular block, first degree; J32.8 Other chronic sinusitis; U07.1 COVID-19; I48.0 Paroxysmal atrial fibrillation; E03.9 Hypothyroidism, unspecified; Z88.0 Allergy status to penicillin; Z88.5 Allergy status to narcotic agent; Z88.8 Allergy status to other drugs, medicaments and biological substances; Z66 Do not resuscitate; Z79.01 Long term (current) use of anticoagulants; Z96.641 Presence of right artificial hip joint; Z95.2 Presence of prosthetic heart valve; Z51.5 Encounter for palliative care
CPT/HCPCS: 0241U; 36415; 51702; 70450; 70496; 70498; 70551; 71045; 76377; 80053; 80061; 80069; 81001; 82947; 84484; 85025; 85610; 92610; 93005; 93010; 93306; 94640; 94760; 96372; 99285-25; A9270; C9113; G0378; J0360; J1650; Q9967